=== PATIENT | male | born 1940 | race Caucasian/White ===

== ENCOUNTER 2023-07-08 14:45 | Inpatient (IN) ==
--- NOTE | 2023-07-08 15:02 | Emergency Department Note ---
Impression & Plan Dysphagia, Vomiting ED Provider Note NAME: PARADISE BANEGAS AGE: 83 SEX: M : 1940 ARRIVES VIA: Walk-In INFORMANT: Patient ED PROVIDER(S): Baljit Santos DO CHIEF COMPLAINT: Unable to swallow HPI: Patient is an 83-year-old male who presents to the ER as he has been unable to eat or drink anything for the past month. This initially started with drier and pulverizer tender foods and now he cannot eat any food. He is able to keep some liquids down intermittently. He notes he feels very weak and rundown. Denies any headache or change in vision. No chest pain or shortness of breath unless he swallows in which case then he gets chest pain. No belly pain. No dysuria, urgency, or fr equency. No other exacerbating or remitting factors. He has never had this before. Additional history provided by daughter at bedside and notes he has not been able to eat or drink anything today. ADDITIONAL HISTORY OBTAINED: Per HPI Chronic Medical/Social Conditions Affecting Care: Per HPI PAST MEDICAL HISTORY:See Below PAST SURGICAL HISTORY:See Below FAMILY HISTORY:See Below SOCIAL HISTORY:See Below HOME MEDICATIONS:See Below ALLERGIES:See Below VITALS:See Below PHYSICAL EXAMINATION: GENERAL: Sitting up in bed, alert, chronically ill-appearing, disheveled EYE EXAM: normal conjunctiva. OROPHARYNX: mucous membranes are moist NECK: supple, no nuchal rigidity, no adenopathy, non-tender LUNGS: Clear to auscultation. Normal chest wall mechanics HEART: no murmurs, S1 normal and S2 normal ABDOMEN: abdomen soft, non-tender, normo-active bowel sounds, no masses, no r ebound or guarding. UPPER EXTREMITIES: upper extremities are grossly normal. LOWER EXTREMITIES: No pitting edema. NEURO EXAM: Normal sensorium, cranial nerves II-XII grossly intact, normal speech, no gross weakness of arms, no gross weakness of legs. MEDICAL DECISION MAKING: Patient is an 83-year-old male who presents ER for above-stated complaint. IV was established blood was obtained. Labs show no significant leukocytosis or anemia. BMP along LFTs bilirubin was unremarkable. Lipase is normal. Patient was given IV fluids. He notes he has no chest pain unless he swallows. This not consistent with ACS. Chest x-ray was unremarkable. He was updated bedside. Discussed with the hospitalist patient was admitted to Dr. Andres. External Records Reviewed: External records reviewed at bedside from [facility]. Patient has scope on Monday Consults/Care Managements Discussions: Per MDM Triage Nursing notes reviewed. Limited review of prior medical records performed Vital Signs: reviewed and remarkable for no significant abnormalities Differential diagnosis: Differential diagnoses includes but is not limited to gastritis, peptic ulcer disease, GERD, gallbladder disease, pancreatitis, small bowel obstruction, appendicitis, diverticulitis, hernia, urinary tract infection, torsion, perforation, trauma, infectious. ER treatment provided: See below Diagnostics interpreted by me include EKG and cardiac monitoring as listed below: -Cardiac Monitoring: An order was placed for continuous cardiac monitoring. The monitor shows a rate of 60 with sinus rhythm. -ECG: none -Laboratory studies:Interpreted by me as stated above in MDM and shown below. Imaging studies: Xrays: As interpreted by me: Portable AP upright 1 view of the chest shows no focal infiltrate per my read CTs show: none Procedures:none Critical Care: None Past Med/Surg History Social History Smoking Status: Never smoker Preferred Language: Cook Islander Feels Safe at Home: Yes Allergies Allergies Allergy/AdvReac Type Severity Reaction Status Date / Time No Known Allergies Allergy Unverified 07/08/23 15:13 Home Meds Home Medications Medication Instructions Recorded Confirmed cyanocobalamin (vitamin B-12) 1,000 mcg PO QAM 07/08/23 07/08/23 1,000 mcg sublingual tablet Results & Data (ED) Vital Signs Vital Signs - 24 hr 07/08/23 14:48 07/08/23 15:15 07/08/23 15:03 Temperature 36.6 C Temperature Source Temporal Artery Scan Pulse Rate 71 86 Pulse Rate [Apical] 64 Pulse Rhythm Regular Regular Pulse Rhythm [Apical] Regular Pulse Strength Normal Pulse Strength [Apical] Normal Respiratory Rate 20 20 20 Respiratory Effort / Characteristics Non-Labored Spontaneous Non-Labored Spontaneous Respiratory Depth Normal Normal Respiratory Pattern Regular Regular Blood Pressure 160/92 H Blood Pressure [Right Arm] 162/94 H Blood Pressure Mean 114 Blood Pressure Mean [Right Arm] 116 Blood Pressure Position Sitting Blood Pressure Position [Right Arm] Sitting Pulse Oximetry 95 96 96 Oxygen Delivery Method Room Air Room Air Room Air Sepsis Recent Fever Within 48 Hours No Sepsis New/Unexplained Change in Mental Status No Sepsis Action Taken by Nursing No Action Required 07/08/23 15:44 07/08/23 16:03 07/08/23 17:29 Temperature Temperature Source Pulse Rate 52 L Pulse Rate [Apical] 57 L 58 L Pulse Rhythm Pulse Rhythm [Apical] Regular Regular Pulse Strength Pulse Strength [Apical] Normal Normal Respiratory Rate 20 20 Respiratory Effort / Characteristics Non-Labored Spontaneous Non-Labored Spontaneous Respiratory Depth Normal Normal Respiratory Pattern Regular Regular Blood Pressure Blood Pressure [Right Arm] 168/106 H 113/95 Blood Pressure Mean Blood Pressure Mean [Right Arm] 126 101 Blood Pressure Position Blood Pressure Position [Right Arm] Sitting Sitting Pulse Oximetry 97 97 Oxygen Delivery Method Room Air Room Air Sepsis Recent Fever Within 48 Hours Sepsis New/Unexplained Change in Mental Status Sepsis Action Taken by Nursing Laboratory Data 07/08/23 15:30 07/08/23 16:39 Lab Results 07/08/23 07/08/23 07/08/23 Range/Units 15:30 15:30 16:39 WBC 8.56 (4.8-10.8) K/ul RBC 4.57 L (4.70-6.10) M/uL Hgb 14.2 (14.0-18.0) g/dl Hct 42.3 (42.0-52.0) % MCV 92.6 (80.0-100.0) fL MCH 31.1 (25.0-34.0) pg MCHC 33.6 (32.0-36.0) g/dL RDW Std Deviation 43.4 (36.4-46.3) fL RDW Coeff of Toya 12.6 (11.5-14.5) % Plt Count 310 (130-400) K/uL MPV 9.6 (9.4-12.4) fL Immature Gran % (Auto) 0.2 % Neut % (Auto) 79.1 % Lymph % (Auto) 13.8 % Frio % (Auto) 5.6 % Eos % (Auto) 0.9 % Baso % (Auto) 0.4 % Neut # (Auto) 6.77 H (1.40-6.50) K/uL Lymph # (Auto) 1.18 L (1.20-3.40) K/uL Frio # (Auto) 0.48 (0.11-0.59) K/uL Eos # (Auto) 0.08 (0.00-0.50) K/uL Baso # (Auto) 0.03 (0.00-0.20) K/uL Immature Gran # (Auto) 0.02 (0.01-0.20) K/uL Sodium 135 L (136-145) mmol/L Potassium TNP 3.9 Chloride 104 (98-107) mmol/L Carbon Dioxide 22 (21-32) mmol/L Anion Gap 9 (3-11) BUN 37 H (6-23) mg/dl Creatinine 0.84 (0.6-1.4) mg/dl Est Cr Clr Drug Dosing Not Reportable Est GFR ( Amer) 92.5 ml/min Est GFR (Non-Af Amer) 79.8 ml/min BUN/Creatinine Ratio 44.0 H (10-20) Glucose 87 (70-99(Fasting)) mg/dl Calcium 9.3 (8.6-10.3) mg/dl Total Bilirubin 0.7 (0.2-1.0) mg/dl AST TNP 19 ALT 9 (7-52) U/L Alkaline Phosphatase 87 (34-104) U/L Total Protein 8.4 H (6.0-8.3) gm/dl Albumin 3.9 (3.4-5.0) gm/dl Globulin 4.5 H (2.5-4.0) gm/dl Albumin/Globulin Ratio 0.9 (0.9-2) Lipase 32 (11-82) U/L Administered Medications Discontinued Medications Sodium Chloride (Nss) 500 mls @ 999 mls/hr IV .Q31M ONE Stop: 07/08/23 15:34 Last Infusion: 07/08/23 16:15 Dose: 0 mls/hr Documented By: Admin: 07/08/23 15:40 Dose: 999 mls/hr Documented By: CONNOR Imaging Data Radiologist's Impression: Chest X-Ray 07/08/23 15:02 SINGLE VIEW CHEST CLINICAL HISTORY: Dysphagia FINDINGS: 2 AP, portable, upright chest radiographs are obtained. No prior studies are available for comparison at the time of dictation. The heart is mildly enlarged noting atherosclerotic calcification of the thoracic aorta. The pulmonary vasculature is noncongested. Nonspecific interstitial thickening is likely chronic. There is bibasilar scarring/atelectasis. The lungs and pleural spaces are otherwise clear. No pneumothorax is seen. The skeletal structures are osteopenic. The bony thorax is grossly intact. Degenerative change is noted in the shoulders. IMPRESSION: Mild cardiomegaly with no acute cardiopulmonary abnormality identified. ACT 112: Negative or not required by law. Electronically signed by: Griffin Theodore M.D. 07/08/2023 3:28 PM Discharge Plan Visit Data Chief Complaint: Food Bolus Stated Complaint: DIFFICULTY SWALLOWING, DECREASED PO INTAKE ED Provider: Baljit Santos Discharge Problem: Dysphagia, Vomiting Patient Disposition: Home - Self-Care Discharge Instructions Interventions: ED Discharge Assessment Last Done: 07/08/23 15:26 Forms Stand Alone Forms: [facility], Virtual Emergency Department, Impor tant Visit Information Prescriptions Prescriptions: No Action cyanocobalamin (vitamin B-12) 1,000 mcg tablet, sublingual 1,000 mcg PO QAM Referrals Referrals: Geovany Mclean MD [Primary Care Provider] -
[2023-07-08] MEDS ORDERED: SODIUM CHLORIDE 0.9% 500 ML IV ONE (15:04)
--- NOTE | 2023-07-08 15:29 | XRay Report ---
SINGLE VIEW CHEST CLINICAL HISTORY: Dysphagia FINDINGS: 2 AP, portable, upright chest radiographs are obtained. No prior studies are available for comparison at the time of dictation. The heart is mildly enlarged noting atherosclerotic calcificatio n of the thoracic aorta. The pulmonary vasculature is noncongested. Nonspecific interstitial thickeni ng is likely chronic. There is bibasilar scarring/atelectasis. The lungs and pleural spaces are other garnett clear. No pneumothorax is seen. The skeletal structures are osteopenic. The bony thorax is gross ly intact. Degenerative change is noted in the shoulders. IMPRESSION: Mild cardiomegaly with no acute cardiopulmonary abnormality identified. ACT 112: Negative or not required by law. Electronically signed by: Griffin Theodore M.D. 07/08/2023 3:28 PM
[2023-07-08 15:55] LABS: Basophils # (auto) 0.03 K/uL (0.00-0.20); Basophils % (auto) 0.4 %; Eosinophils # (auto) 0.08 K/uL (0.00-0.50); Eosinophils % (auto) 0.9 %; Hematocrit (blood only) 42.3 % (42.0-52.0); Hemoglobin 14.2 g/dl (14.0-18.0); Immature Granulocytes # (auto) 0.02 K/uL (0.01-0.20); Immature Granulocytes % (auto) 0.2 %; Lymphocytes # (auto) 1.18 K/uL (1.20-3.40); Lymphocytes % (auto) 13.8 %; Mean Corpuscular Hemoglobin 31.1 pg (25.0-34.0); Mean Corpuscular Hgb Conc 33.6 g/dL (32.0-36.0); Mean Corpuscular Volume 92.6 fL (80.0-100.0); Mean Platelet Volume 9.6 fL (9.4-12.4); Monocytes # (auto) 0.48 K/uL (0.11-0.59); Monocytes % (auto) 5.6 %; Neutrophils # (auto) 6.77 K/uL (1.40-6.50); Neutrophils % (auto) 79.1 %; Platelet Count 310 K/uL (130-400); RDW Coefficient of Variation 12.6 % (11.5-14.5); RDW Standard Deviation 43.4 fL (36.4-46.3); Red Blood Count 4.57 M/uL (4.70-6.10); White Blood Count 8.56 K/ul (4.8-10.8)
[2023-07-08 16:17] LABS: Alanine Aminotransferase 9 U/L (7-52); Albumin Globulin Ratio 0.9 (0.9-2); Albumin Level 3.9 gm/dl (3.4-5.0); Alkaline Phosphatase 87 U/L (34-104); Anion Gap 9 (3-11); Bilirubin,Total 0.7 mg/dl (0.2-1.0); Blood Urea Nitrogen 37 mg/dl (6-23); Calcium 9.3 mg/dl (8.6-10.3); Carbon Dioxide 22 mmol/L (21-32); Chloride 104 mmol/L (98-107); Est GFR (African American) 92.5 ml/min; Est GFR (Non-African American) 79.8 ml/min; Globulin 4.5 gm/dl (2.5-4.0); Glucose 87 mg/dl (70-99(Fasting)); Lipase 32 U/L (11-82); Sodium 135 mmol/L (136-145); Total Protein 8.4 gm/dl (6.0-8.3)
[2023-07-08 17:08] LABS: Potassium 3.9 mmol/L (3.5-5.1)
--- NOTE | 2023-07-08 18:30 | History & Physical Report ---
Date of Service July 08, 2023 Assessment & Plan (1) Dysphagia: (2) Weight loss: (3) Prediabetes: (4) Vitamin B12 deficiency (dietary) anemia: Plan Worsening dysphagia and weight loss: -on exam pt had possible goiter vs midline neck mass ---- therefore will get CT neck and TSH -CBC and CMP are unremarkable - weight loss is likely 2/2 decreased PO intake -not suspecting any potential underlying carcinoma --- pt does not have any urinary symptoms -since pt is unable to eat will keep pt NPO --- GI consult for possible in house EGD --- will do maintenance fluid (D5NS- since pt appeared dehydrated) -abd exam is normal therefore no need for CT abd at this time - pt does chew tobacco daily Prediabetes and Vit B12 def: -will hold PO meds at this time - pts hgb is normal -Pt is NPO Diet:NPO DVT PPx: Lovenox Code Status: FULL CODE Emergency Contact: Daughter-Sunitha [phone] History of Present Illness Chief Complaint: dysphagia and weight loss Primary Care Provider: Geovany Mclean MD Pt is a 83 y/o M with hx of Vit B12 def anemia, prediabetes, Trace mitral regurgitation, Mild aortic regurgitation, macular degenerationand s/pcataractsurgery came into the ER with worsening dysphagia and weight loss. Per daughter who was at bedside. Pt has been experiencing dysphagia for 2 m onths. Initially it was associated with solid, dry food and now pt is having dysphagia with water. He also lost abt ~20 lbs in last 2 months. Pt denied any fever, abd pain, lymphadenopathy, urinary symptoms, night sweats. Per daughter pt is still able to do things in the house. Allergies Allergy/AdvReac Type Severity Reaction Status Date / Time No Known Allergies Allergy Unverified 07/08/23 15:13 Home Medications Medication Instructions Recorded Confirmed Type cyanocobalamin (vitamin B-12) 1,000 mcg PO QAM 07/08/23 07/08/23 History 1,000 mcg sublingual tablet Past Med/Surg History Medical History (Updated 07/08/23 @ 18:28 by Geovany Mclean MD) Macular degeneration Mild aortic regurgitation Prediabetes Vitamin B12 deficiency (dietary) anemia Surgical History (Updated 07/08/23 @ 18:26 by Geovany Mclean MD) Hx of appendectomy Social History (Updated 07/08/23 @ 18:27 by Geovany Mclean MD) Smoking Status: Never smoker Tobacco Type: Smokeless Tobacco (Dip or Chew) Preferred Language: Finnish Feels Safe at Home: Yes Review of Systems Review of Systems: At least 10 Review of systems were reviewed and all negative except as indicated in HPI Physical Exam Physical Exam: General:. NAD, average body habitus HEENT:.normal oropharynx, possible goiter but no palpable thyroid nodule, Normocephalic and atraumatic, Normal Conjunctiva, EOMI, Sclera is non-icteric Lungs:. No signs of respiratory distress, CTA, no wheezing or crackles Heart:.systolic murmur, Normal S1, S2 Abdominal:. ND, Soft, NT, normal BS MSK:. No deformities of UE and LE, No leg edema Skin:. no rash or open wound Psych:. AAOx3, normal affect Results & Data Results & Data Vital Signs (Past 12 Hours) Vital Signs Temp Pulse Pulse Resp BP BP Pulse Ox 07/08/23 17:29 58 L 20 113/95 97 07/08/23 16:03 57 L 20 168/106 H 97 07/08/23 15:44 52 L 07/08/23 15:03 86 20 96 07/08/23 15:15 64 20 162/94 H 96 07/08/23 14:48 36.6 C 71 20 160/92 H 95 O2 Del Method 07/08/23 17:29 Room Air 07/08/23 16:03 Room Air 07/08/23 15:44 07/08/23 15:03 Room Air 07/08/23 15:15 Room Air 07/08/23 14:48 Room Air Laboratory Results Short CBC 07/08/23 Range/Units 15:30 WBC 8.56 (4.8-10.8) K/ul Hgb 14.2 (14.0-18.0) g/dl Hct 42.3 (42.0-52.0) % Plt Count 310 (130-400) K/uL BMP 07/08/23 07/08/23 15:30 16:39 Sodium 135 L Potassium TNP 3.9 Chloride 104 Carbon Dioxide 22 BUN 37 H Creatinine 0.84 Glucose 87 Calcium 9.3 Liver Function 10/07/23 10/07/23 Range/Units 15:30 16:39 Total Bilirubin 0.7 (0.2-1.0) mg/dl AST TNP 19 ALT 9 (7-52) U/L Alkaline Phosphatase 87 (34-104) U/L Albumin 3.9 (3.4-5.0) gm/dl Diagnostic Findings Chest X-Ray 07/08/23 15:02 SINGLE VIEW CHEST CLINICAL HISTORY: Dysphagia FINDINGS: 2 AP, portable, upright chest radiographs are obtained. No prior studies are available for comparison at the time of dictation. The heart is mildly enlarged noting atherosclerotic calcification of the thoracic aorta. The pulmonary vasculature is noncongested. Nonspecific interstitial thickening is likely chronic. There is bibasilar scarring/atelectasis. The lungs and pleural spaces are otherwise clear. No pneumothorax is seen. The skeletal structures are osteopenic. The bony thorax is grossly intact. Degenerative change is noted in the shoulders. IMPRESSION: Mild cardiomegaly with no acute cardiopulmonary abnormality identified. ACT 112: Negative or not required by law. Electronically signed by: Griffin Theodore M.D. 07/08/2023 3:28 PM Code Status & VTE Plan VTE Prophylaxis Plan VTE Prophylaxis will be ordered: Yes
[2023-07-08] MEDS ORDERED: D5W AND NSS 1,000 ML IV SCH (18:47)
[2023-07-08] MEDS ORDERED: OPTIRAY 320 100ml IV ONE (20:16)
[2023-07-08] MEDS: ENOXAPARIN INJ 40 MG/0.4 ML SYR SQ SCH (21:49)
--- NOTE | 2023-07-08 22:41 | CT Scan Report ---
Exam(s): CT NECK With Contrast IV Amt: OPTIRAY 320 93ML EXAM: CT Neck With Intravenous Contrast CLINICAL HISTORY: Reason for exam: neck goiter vs mass. TECHNIQUE: Axial computed tomography images of the neck with intravenous contrast. CTDI is 10.82 mGy and DLP is 306.55 mGy-cm. Automated exposure control was utilized for the study. A dose lowering technique was utilized adhering to the principles of ALARA. CONTRAST: Patient received OPTIRAY 320 93ML of IV contrast COMPARISON: None. FINDINGS: Oropharynx: Unremarkable. No significant tonsillar enlargement. No peritonsillar abscess. Hypopharynx: Unremarkable. Larynx: Unremarkable. Normal epiglottis. Trachea: Unremarkable. Retropharyngeal space: Unremarkable. Submandibular/parotid glands: Unremarkable. Glands are normal in size. Thyroid: Unremarkable. No enlarged or calcified nodules. Bones/joints: Multilevel DJD disease of the spine with no acute fracture or subluxation. Soft tissues: Unremarkable. Vasculature: Mild atherosclerotic disease of the aortic arch. Mild atherosclerotic disease involving the left carotid bulb region, otherwise normal bilateral carotid arteries. Dominant left-sided vertebral artery, otherwise unremarkable bilateral vertebral arteries. Lymph nodes: There is a partially calcific nodule in the left upper paraesophageal region measuring 1.4 x 1.1 cm mass, associated with calcified lymph nodes. Esophagus: Marked dilatation of the upper esophagus with foamy debris in the lumen reaching a diameter of 4.2 cm. Lung apices: The lung apices reveal mild interstitial prominence in the septal distribution with trace honeycombing suggestive of early fibrosis. IMPRESSION: 1. Severe dilatation of the upper esophagus suggestive of achalasia versus obstructive distal lesion of indeterminate etiology. Recommend follow-up with upper endoscopy or upper GI series for further evaluation. 2. Calcified nodule within the left upper mediastinal/paraesophageal region, nonspecific and,, knee associated with sequela of previous granulomatous infection. If indicated, these findings may be further assessed with CT chest to include upper abdomen/gastric region. 3. 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 Electronically signed by: Karly Davis MD 07/08/23 22:40 PM
[2023-07-09 00:34] LABS: Appearance Urine Clear (Clear); Bacteria Urine Automated Negative (Negative); Bilirubin Urine Negative (Negative); Blood Urine Negative (Negative); Color Urine Yellow; Glucose Urine UA Negative (Negative); Ketones Urine 3+ (Negative); Leukocyte Esterase Urine Negative (Negative); Nitrite Urine Negative (Negative); Protein Urine Trace (Negative); RBC Urine Automated 0-4 /hpf (0-4); Specific Gravity Urine > 1.045 (1.000-1.030); Urobilinogen Urine Negative (Negative); pH Urine 5.5 (4.5-7.5)
[2023-07-09 07:39] LABS: Basophils # (auto) 0.03 K/uL (0.00-0.20); Basophils % (auto) 0.5 %; Eosinophils # (auto) 0.27 K/uL (0.00-0.50); Eosinophils % (auto) 4.7 %; Hematocrit (blood only) 38.5 % (42.0-52.0); Hemoglobin 12.4 g/dl (14.0-18.0); Immature Granulocytes # (auto) 0.02 K/uL (0.01-0.20); Immature Granulocytes % (auto) 0.4 %; Lymphocytes # (auto) 1.22 K/uL (1.20-3.40); Lymphocytes % (auto) 21.4 %; Mean Corpuscular Hemoglobin 30.6 pg (25.0-34.0); Mean Corpuscular Hgb Conc 32.2 g/dL (32.0-36.0); Mean Corpuscular Volume 95.1 fL (80.0-100.0); Mean Platelet Volume 9.5 fL (9.4-12.4); Monocytes % (auto) 8.8 %; Neutrophils # (auto) 3.65 K/uL (1.40-6.50); Neutrophils % (auto) 64.2 %; Platelet Count 282 K/uL (130-400); RDW Coefficient of Variation 12.5 % (11.5-14.5); RDW Standard Deviation 43.7 fL (36.4-46.3); Red Blood Count 4.05 M/uL (4.70-6.10); White Blood Count 5.69 K/ul (4.8-10.8)
[2023-07-09 08:14] LABS: Albumin Globulin Ratio 0.9 (0.9-2); Albumin Level 3.2 gm/dl (3.4-5.0); BUN Creatinine Ratio 41.9 (10-20); Bilirubin,Total 0.7 mg/dl (0.2-1.0); Calcium 8.4 mg/dl (8.6-10.3); Creatinine Clr Calc Pharmacy 65.8 ml/min; Est GFR (African American) 97.5 ml/min; Est GFR (Non-African American) 84.1 ml/min; Globulin 3.7 gm/dl (2.5-4.0); Magnesium 2.1 mg/dl (1.7-2.4); Potassium 3.9 mmol/L (3.5-5.1); Total Protein 6.9 gm/dl (6.0-8.3)
--- NOTE | 2023-07-09 11:25 | CT Scan Report ---
CT SCAN OF THE CHEST WITHOUT IV CONTRAST CLINICAL HISTORY: Esophageal dilatation is seen on neck CT. COMPARISON STUDY: Chest x-ray dated 07/08/2023. Neck CT dated 07/08/2023. TECHNIQUE: CT scan of the thorax was performed from the thoracic inlet to the upper abdomen. Images are reviewed in the axial, sagittal, and coronal planes. IV contrast was not administered for this ex amination as per the referring clinician. Note that the examination is suboptimal without IV contrast . A dose lowering technique was utilized adhering to the principles of ALARA. CT DOSE: 599.31 mGy.cm FINDINGS: Thyroid: Imaged portions of the thyroid gland are normal in size and attenuation. Thoracic aorta: There is atherosclerotic calcification of the thoracic aorta, which is normal in ad cortney and demonstrates standard 3-vessel arch anatomy. Heart: The heart is enlarged and without pericardial effusion. The coronary arteries intensely calcif ied. Lungs and pleural spaces: Subpleural reticulation is seen throughout both lungs. Foci of parenchymal scarring are seen bilaterally, with dependent atelectasis noted at the lung bases. There are scattere d calcific granulomas. No airspace consolidation or pleural effusion is seen. The trachea and central airways are clear. A 3 mm left upper lobe pulmonary nodule is seen on image #95. A 3 mm right upper lobe nodule is seen on image #86. Esophagus: The esophagus is significantly dilated and filled with fluid/debris level of the thoracic inlet. The distal esophagus appears circumferentially thick walled, and there is also irregular wall thickening at the gastroesophageal junction/gastric cardia with surrounding infiltration. Mediastinum: A calcification containing high left paratracheal node on image #61 measures 1.5 x 1.1 c m. Prominent prevascular and precarinal nodes measure up to 8 mm short axis. A right paraesophageal n ode on image #127 measures 1.6 x 1.4 cm. Belen: Not well assessed without IV contrast. Axillae: There is no axillary lymphadenopathy. Upper abdomen: Excreted contrast is seen in the renal collecting systems. Renal sinus cysts are parti ally seen bilaterally. There are pathologically enlarged gastric hepatic lymph nodes, several of whic h contain calcifications. A node on image #214 measures 2.8 x 2.3 cm. A more inferiorly located node image #227 contains calcifications and measures 3.2 x 2.6 cm, and a calcification in a node just belo w the hiatus on image #211 measures 2.1 x 2.0 cm.. Skeletal structures: The skeletal structures are osteopenic. Degenerative change and hyperkyphosis is noted in the spine. No lytic or blastic bony lesions are seen. IMPRESSION: 1. Markedly dilated esophagus, which is filled with fluid/debris to the level of the thoracic inlet. Note that this may place the patient at risk for aspiration. 2. The distal esophagus is circumferentially thick walled with surrounding infiltration. There is als o irregular/heterogeneous wall thickening involving the gastroesophageal junction/gastric cardia with surrounding infiltration. Although this could potentially be on inflammatory basis, the appearance i s much more suspicious for an obstructing gastroesophageal mass lesion. Correlation with endoscopy is recommended. 3. There is bulky upper abdominal lymphadenopathy as above. Several these nodes contain calcification s. Metastatic disease is to be excluded. 4. There is a smaller but similar appearing calcified high left paratracheal node, as well as an enla rged right paraesophageal node. 5. No airspace consolidation or pleural effusion is identified. 6. There are at least 2 indeterminate pulmonary nodules which measure up to 3 mm. Attention of follow -up is recommended. 7. Chronic pulmonary parenchymal changes as above with no airspace consolidation or pleural effusion. 8. Cardiomegaly with advanced coronary artery calcification. 9. Additional findings as above. ACT 112: Positive. There are findings on this exam that require communication between the performing entity and the patient following Patient Test Result Information Act ([place] Act 112) guidelines. Electronically signed by: Griffin Theodore M.D. 07/09/2023 11:23 AM
--- NOTE | 2023-07-09 14:06 | Gastrointestinal Consultation ---
Date of Consultation July 09, 2023 Supervising Physician Co-Signing Physician Notes Ice chips are fine Would hold off on liquids/softs- these were given earlier bc the patient was stating he wanted to leave bc he was hungry. Npo after midnite. EGD tomorrow likely in the or - per the OR schedule (information has been communicated to the OR about the patient and add on for tomorrow). History of Present Illness Reason for Consultation: Dysphagia Requesting Physician: Dr. Barba Attending Physician: Anneliese Barba MD History of Present Illness 83 yo male with macular degeneration, admitted thru the ed for progressive dysphagia. He was seen in the GI office on Monday for this complaint. He came to the ED stating he was not able to keep things down. Cxray negative in the ed and was tolerating secretions. He was admitted yesterday evening GI consulted this morning. CT neck/chest showing dilated esophagus with questionable fluid/debris, and ? hernia versus ge junction obstruction. I had spoken with Sunitha on the phone. He is clinically seen this afternoon with a daughter at the bedside (not Sunitha) a different daughter and his two nieces. The family is not certain who the poa is or if he has a poa. The patient states he seems to make his own decisions but then askes to talk to his daughter (the daughter in the room) mentions to talk to Sunitha or Katie the other daughters. He clinically is not endorsing pain, no drooling noted, tolerating his secretions. Per the nurse when eating ice cream within the past hour, choked on it. Did discuss with anesthesia that he is potentially at higher aspiration risk given ct findings and recent ice cream. Given he is not acute obstructed in appearance, collective decision with the family and prior conversation with Sunitha was to attempt endoscopy tomorrow. Allergies Allergy/AdvReac Type Severity Reaction Status Date / Time No Known Allergies Allergy Unverified 07/08/23 15:13 Home Medications Medication Instructions Recorded Confirmed Type cyanocobalamin (vitamin B-12) 1,000 mcg PO QAM 07/08/23 07/08/23 History 1,000 mcg sublingual tablet Patient History Medical History (Updated 07/08/23 @ 18:28 by Geovany Mclean MD) Macular degeneration Mild aortic regurgitation Prediabetes Vitamin B12 deficiency (dietary) anemia Surgical History (Updated 07/08/23 @ 18:26 by Geovany Mclean MD) Hx of appendectomy Social History (Updated 07/08/23 @ 18:27 by Geovany Mclean MD) Smoking Status: Former smoker Tobacco Type: Smokeless Tobacco (Dip or Chew) Second Hand Exposure: No; Do You Dip or Chew Tobacco: No; Tobacco Cessation Education Requested by Patient: No Hx Alcohol Use: No Hx Substance Use: No Preferred Language: Romanian Communication Ability: Effective Communication Ability Comment: Visual Impairement Cardiovascular Invasive Specialist Required: No Beliefs That Will Affect Care: None Current Living Situation: Alone Other Information That Helps Us Care for You: No Feels Safe at Home: Yes Safety Concerns: Feels Safe At This Time Assistive Devices: Cane Review of Systems Review of Systems: All systems reviewed & are unremarkable except as noted in HPI & below Physical Exam Physical Exam: Thin amle in nad Eyes: PERRL, conjunctivae normal, anicteric sclerae Tolerating secretions, no acute distress Respiratory: Normal respirations, no audible wheezing Cardiovascular: Slightly bradycardic Gastrointestinal (Abdomen): Thin soft Results & Data Vital Signs (Past 12 Hours) Vital Signs Temp Pulse Resp BP Pulse Ox O2 Del Method 07/09/23 07:53 36.3 C L 43 L 18 126/74 98 Room Air Laboratory Results No prior egd noted labs reviewed - slight downtrend in hgb
[2023-07-09] MEDS: SODIUM CHLORIDE 0.9% 1,000 ML IV SCH (17:12)
--- NOTE | 2023-07-09 17:32 | Hospitalist Progress Note ---
Date of Service July 09, 2023 Assessment & Plan (1) Dysphagia: (2) Weight loss: (3) Prediabetes: (4) Vitamin B12 deficiency (dietary) anemia: Plan 83 y/o M with hx of Vit B12 def anemia, prediabetes, Trace mitral regurgitation, Mild aortic regurgitation, macular degenerationand s/pcataractsurgery admitted with worsening dysphagia and weight loss. Dysphagia Weight Loss Pt states he has had worsening dysphagia and weight loss for months CT soft tissue neck- Notes severe dilatation of the upper esophagus suggestive of achalasia versus obstructive distal lesion of indeterminate etiology. CT chest noted the following: -Markedly dilated esophagus, which is filled with fluid/debris to the level of the thoracic inlet, concern for ability to aspirate -Concern for malignancy/an obstructing gastroesophageal mass lesion in the distal esophagus/gastric cardia -Bulky upper abdominal lymphadenopathy with calcifications concerning for metastatic disease -smaller but similar appearing calcified high left paratracheal node, as well as an enlarged right paraesophageal node -2 indeterminate pulmonary nodules which measure up to 3 mm. Attention of follow-up is recommended. -Cardiomegaly GI consulted, also contacted throughout the day, appreciate recs. -EGD tomorrow 07/10 -Pt NPO after a failed soft food/ice-cream trial, can eat ice chips Continue IVF, PRN IV reglan Holding all home PO meds Noted that pt does chew tobacco daily Will await EGD results/assessment for next steps Prediabetes and Vit B12 def: Will hold PO meds at this time Diet: NPO at this time DVT PPx: Lovenox Code Status: FULL CODE Admission and Anticipated Discharge Date Admission Date: July 08, 2023 Subjective Called to bedside by nursing this AM. Stated that pt was angry and wanted to eat, pulled out his IV and wanted to leave. On arrival, pt was sitting in the bed. Stated that he has not been able to eat for some time and would like to do so. States he was under the impression that something would be done for him as soon as possible. GI was contacted by both this provider and nursing. Review of Systems Review of Systems: All systems reviewed & are unremarkable except as noted in Subjective Physical Exam Physical Exam: General: Alert, oriented. No acute distress Skin: No noted rashes or bruises Psych: Appropriate mood and affect Neuro: No gross deficits HEENT: NC/AT Chest: Nontender to palpation. CV: RRR, Normal s1, s2. Resp: Breath sounds clear bilaterally, no increased effort of breathing. Abdomen: Soft, nontender, nondistended. Extremities: No edema in lower extremities bilaterally. Results & Data Results & Data Vital Signs (Past 12 Hours) Vital Signs Temp Pulse Resp BP Pulse Ox O2 Del Method 07/08/23 21:02 36.4 C L 53 L 18 123/71 96 Room Air
[2023-07-09] MEDS ORDERED: METOCLOPRAMIDE HCL INJ 5 MG/ML 2 ML VIAL IV PRN (18:07)
[2023-07-09] MEDS ORDERED: OLANZapine 10 MG/2.1 ML SDV IM STA (18:31)
[2023-07-09] MEDS: OLANZapine 10 MG/2.1 ML SDV IM ONE ×2 (18:31→18:39)
--- NOTE | 2023-07-09 20:01 | Communication Note ---
Date of Service: July 09, 2023 Patient agitated on the third floor. SBP 120s, heart rate 40s Zyprexa given by staff. AP Asymptomatic bradycardia Agitation Med telemetry transfer given bradycardia Baseline EKG to document QTc. Patient may need IM Haldol if Zyprexa ineffective.
[2023-07-09] MEDS ORDERED: PROMETHAZINE HCL 6.25 MG in SODIUM CHLORIDE 0.9% 50 ML IV PRN (20:04)
[2023-07-09] MEDS ORDERED: OLANZapine 10 MG/2.1 ML SDV IM PRN (20:05)
[2023-07-09] MEDS: ENOXAPARIN INJ 40 MG/0.4 ML SYR SQ SCH (21:10)
[2023-07-10] MEDS ORDERED: HALOPERIDOL LACTATE 5 MG/ML 1 ML VIAL IM STA ×2 (00:53→03:14)
[2023-07-10] MEDS: HALOPERIDOL LACTATE 5 MG/ML 1 ML VIAL IM PRN ×4 (01:58→18:44)
[2023-07-10] MEDS: SODIUM CHLORIDE 0.9% 1,000 ML IV SCH (04:09)
[2023-07-10 05:19] LABS: Basophils # (auto) 0.03 K/uL (0.00-0.20); Basophils % (auto) 0.4 %; Eosinophils # (auto) 0.05 K/uL (0.00-0.50); Eosinophils % (auto) 0.7 %; Hematocrit (blood only) 40.9 % (42.0-52.0); Hemoglobin 13.8 g/dl (14.0-18.0); Immature Granulocytes # (auto) 0.02 K/uL (0.01-0.20); Immature Granulocytes % (auto) 0.3 %; Lymphocytes # (auto) 0.75 K/uL (1.20-3.40); Lymphocytes % (auto) 9.9 %; Mean Corpuscular Hemoglobin 30.8 pg (25.0-34.0); Mean Corpuscular Hgb Conc 33.7 g/dL (32.0-36.0); Mean Corpuscular Volume 91.3 fL (80.0-100.0); Mean Platelet Volume 9.9 fL (9.4-12.4); Monocytes # (auto) 0.72 K/uL (0.11-0.59); Monocytes % (auto) 9.5 %; Neutrophils # (auto) 6.03 K/uL (1.40-6.50); Neutrophils % (auto) 79.2 %; Platelet Count 346 K/uL (130-400); RDW Coefficient of Variation 12.5 % (11.5-14.5); RDW Standard Deviation 41.4 fL (36.4-46.3); Red Blood Count 4.48 M/uL (4.70-6.10)
[2023-07-10 05:37] LABS: Albumin Globulin Ratio 0.9 (0.9-2); Albumin Level 3.6 gm/dl (3.4-5.0); BUN Creatinine Ratio 31.9 (10-20); Bilirubin,Total 0.8 mg/dl (0.2-1.0); Calcium 8.8 mg/dl (8.6-10.3); Creatinine Clr Calc Pharmacy 70.5 ml/min; Est GFR (African American) 100.3 ml/min; Est GFR (Non-African American) 86.6 ml/min; Magnesium 2.1 mg/dl (1.7-2.4); Phosphorus 1.9 mg/dl (2.5-4.9); Potassium 3.5 mmol/L (3.5-5.1); Total Protein 7.6 gm/dl (6.0-8.3)
--- NOTE | 2023-07-10 08:49 | Anesthesiology Consultation ---
Date of Service July 10, 2023 Assessment & Plan (1) Encounter for pre-operative examination: Chart Review Chart Review: Acceptable Risk for Surgery (esophagus full of food) History Surgery Operation Date: 07/10/23 07:50 Proposed Procedures p Esophagogastroduodenoscopy - Catherine England MD Height/Weight Height: 5 ft 7 in Weight: 63.7 kg Allergies Allergy/AdvReac Type Severity Reaction Status Date / Time No Known Allergies Allergy Unverified 07/08/23 15:13 Medications Home Medications Medication Instructions Recorded Confirmed Last Taken cyanocobalamin (vitamin B-12) 1,000 mcg PO QAM 07/08/23 07/08/23 Unknown 1,000 mcg sublingual tablet Active Medications Generic Name Dose Route Start Last Admin Trade Name Freq PRN Reason Stop Dose Admin Enoxaparin Sodium 40 mg 07/08/23 21:00 07/09/23 21:10 Enoxaparin Inj 40 Mg/0.4 Ml Syr SQ 08/07/23 20:59 Not Given Q24H MAYO Haloperidol Lactate 2 mg 07/10/23 00:01 07/10/23 01:58 Haloperidol Lactate 5 Mg/Ml 1 Ml Vial IM 08/09/23 00:00 2 mg Q2H PRN Administration Agitation Sodium Chloride 1,000 mls @ 80 mls/hr 07/09/23 17:15 07/10/23 04:09 Nss IV 08/08/23 17:14 80 mls/hr .[id number] MAYO Administration Past Medical History Medical History Macular degeneration Mild aortic regurgitation Prediabetes Vitamin B12 deficiency (dietary) anemia Past Surgical History Surgical History Hx of appendectomy Social History Smoking Status: Former smoker Do You Dip or Chew Tobacco: No Hx Alcohol Use: No Hx Substance Use: No Physical Exam Vital Signs Last Vital Signs Temp 36.6 C 07/10/23 07:24 Pulse 57 L 07/10/23 07:24 Resp 16 07/10/23 07:24 BP 148/84 H 07/10/23 07:24 Pulse Ox 97 07/10/23 07:24 O2 Del Method Room Air 07/10/23 07:24 Testing Laboratory Results 07/10/23 04:39 07/10/23 04:39 Urine Color Yellow 07/09/23 00:01 Urine Appearance Clear (Clear) 07/09/23 00:01 Urine pH 5.5 (4.5-7.5) 07/09/23 00:01 Ur Specific [place] > 1.045 (1.000-1.030) H 07/09/23 00:01 Urine Protein Trace (Negative) H 07/09/23 00:01 Urine Glucose (UA) Negative (Negative) 07/09/23 00:01 Urine Ketones 3+ (Negative) H 07/09/23 00:01 Urine Nitrite Negative (Negative) 07/09/23 00:01 Ur Leukocyte Esterase Negative (Negative) 07/09/23 00:01 Urine WBC (Auto) 1-5 /hpf (0-5) 07/09/23 00:01 Urine RBC (Auto) 0-4 /hpf (0-4) 07/09/23 00:01 U Hyaline Cast (Auto) 1-5 /lpf (0-5) 07/09/23 00:01 U Epithel Cells (Auto) 5-10 /lpf (0-5) H 07/09/23 00:01 Urine Bacteria (Auto) Negative (Negative) 07/09/23 00:01 07/10/23 08:03 POC Glucose 83 Electrocardiogram Date: 07/08/23 Findings: + poor R wave progression, + SB @ (51) and + [place] (possible inferior)
--- NOTE | 2023-07-10 08:54 | Hospitalist Progress Note ---
Date of Service July 10, 2023 Assessment & Plan (1) Dysphagia: (2) Weight loss: (3) Prediabetes: (4) Vitamin B12 deficiency (dietary) anemia: Plan 83 y/o M with hx of Vit B12 def anemia, prediabetes, Trace mitral regurgitation, Mild aortic regurgitation, macular degenerationand s/pcataractsurgery admitted with worsening dysphagia and weight loss. Dysphagia Weight Loss Pt stated he has had worsening dysphagia and weight loss for months CT soft tissue neck- Notes severe dilatation of the upper esophagus suggestive of achalasia versus obstructive distal lesion of indeterminate etiology. CT chest noted the following: -Markedly dilated esophagus, which is filled with fluid/debris to the level of the thoracic inlet, concern for ability to aspirate -Concern for malignancy/an obstructing gastroesophageal mass lesion in the distal esophagus/gastric cardia -Bulky upper abdominal lymphadenopathy with calcifications concerning for metastatic disease -smaller but similar appearing calcified high left paratracheal node, as well as an enlarged right paraesophageal node -2 indeterminate pulmonary nodules which measure up to 3 mm. Attention of follow-up is recommended. -Cardiomegaly MRI Brain- grossly unremarkable. Notes a 1.5 cm left submandibular calcification, likely within the submandibular duct. Repeat CT chest and abd/pelvis with contrast done for staging-confirming esophageal malignancy GI consulted, also contacted throughout the day, appreciate recs. -EGD tomorrow 07/11 -Pt NPO after a failed soft food/ice-cream trial, can eat ice chips Continue IVF, PRN IV phenergan Holding all home PO meds Noted that pt does chew tobacco daily Will await EGD results/assessment for next steps Delirium Pt gets agitated and sundowns Currently in restraints CODE REZA called evening of 07/09, received a dose of Zyprexa 5mg IM Episode of bradycardia Currently ordered IM Haldol 2mg q2h prn for episodes of agitation Hypoglycemia Pt currently NPO Episodes of hypoglycemia On fluids with d5w Prediabetes and Vit B12 def: Will hold PO meds at this time Diet: NPO at this time DVT PPx: holding in anticipation of procedure, SCDs ordered, pt considered high risk with malignancy Code Status: FULL CODE Admission and Anticipated Discharge Date Admission Date: July 08, 2023 Subjective Pt seen in the AM with daughters and other family members at bedside. Was in restraints. AAOx1. Daughter Katie agreeable to pt being sedated for further imaging. Review of Systems Review of Systems: All systems reviewed & are unremarkable except as noted in Subjective Physical Exam Physical Exam: General: Alert, orientedx1. Cachectic Psych: In restraints for agitation Neuro: Oriented x1 HEENT: NC/AT Chest: Nontender to palpation. CV: RRR, Normal s1, s2. Resp: no increased effort of breathing. Abdomen: Soft, nontender, nondistended. Extremities: No edema in lower extremities bilaterally. Results & Data Results & Data Vital Signs (Past 12 Hours) Vital Signs Temp Pulse Pulse Resp BP BP Pulse Ox 07/10/23 07:24 36.6 C 57 L 16 148/84 H 97 07/10/23 04:00 36.6 C 105 H 20 150/91 H 97 07/09/23 23:00 36.7 C 50 L 18 121/79 98 07/09/23 21:59 36.6 C 44 L 18 140/80 97 O2 Del Method 07/10/23 07:24 Room Air 07/10/23 04:00 Room Air 07/09/23 23:00 Room Air 07/09/23 21:59 Room Air
[2023-07-10] MEDS ORDERED: POTASSIUM PHOS 3 MMOL/1 ML INFUSION IV STA (08:55)
[2023-07-10] MEDS ORDERED: POTASSIUM PHOSPHATE 21 MMOL in SODIUM CHLORIDE 0.9% 500 ML IV ONE (09:30)
--- NOTE | 2023-07-10 12:28 | Electrocardiogram Report ---
Test Reason : Blood Pressure : / mmHG Vent. Rate : 051 BPM Atrial Rate : 051 BPM P-R Int : 160 ms QRS Dur : 076 ms QT Int : 448 ms P-R-T Axes : 069 -71 072 degrees QTc Int : 412 ms Sinus bradycardia Left axis deviation Septal infarct , age undetermined Inferior infarct , age undetermined Abnormal ECG No previous ECGs available Confirmed by Js Browne ([id number]) on 07/10/2023 12:28:26 PM Referred By: REFERRED SELF Confirmed By:Js Browne
--- NOTE | 2023-07-10 12:33 | Electrocardiogram Report ---
Test Reason : Blood Pressure : / mmHG Vent. Rate : 069 BPM Atrial Rate : 069 BPM P-R Int : 172 ms QRS Dur : 086 ms QT Int : 428 ms P-R-T Axes : 065 -50 051 degrees QTc Int : 458 ms Sinus rhythm with occasional Premature ventricular complexes Low voltage QRS Left anterior fascicular block Septal infarct (cited on or before 09-JUL-2023) Inferior infarct (cited on or before 09-JUL-2023) Abnormal ECG When compared with ECG of 09-JUL-2023 20:10, (unconfirmed) Premature ventricular complexes are now Present Confirmed by sJ Browne ([id number]) on 07/10/2023 12:33:02 PM Referred By: REFERRED SELF Confirmed By:Js Browne
--- NOTE | 2023-07-10 12:43 | Gastroenterology Progress Note ---
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 Plan for EGD, likely EUS tomorrow in the OR w airway protection. Imaging is suggestive of a lower esophageal mass. For staging would like to get CT chest, abdomen, pelvis w IV contrast. Prior CTs done w/o contrast. Renal function is now returned to normal. NPO today. Daughters, son agreeable to above plan. Pt has limited understanding but when explained to the pt in simple terms did agree to stay for testing/procedures. Admission and Anticipated Discharge Date Admission Date: July 08, 2023 Supervising Physician Co-Signing Physician Notes Attg add: Pt with worsening dysphagia, weight loss. Imaging on admit shows dilated, fluid filled esophagus. Non con CT suggests mass at GEJ with setve gastric lymphadenopathy. Pt is cachectic. He is awake, alert and verbal but confused - he is in restraints. No cervical or supraclavicular LAD. 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 I discussed this possiblity with pt. Rather than EGD today, I think it would be better to get carpenter CT for staging of cancer of GEJ, EGD tomorrow wih general anesthesia with option to undergo EUS and esophag eal stent. Family is amenable to this. If cancer is diagnosed, pt's children unanimously and unequivocally believe that he would likely forego any treatment fo rthis. Subjective 83 yr old male admitted yesterday for dysphagia, weight loss. CT w dilated, food/fluid filled esophagus. Some confusion since admission. Informal meeting w family about the plan, 3 daughters (Katie first POA, Deysi and Sunitha also POAs) and son Federico. They feel the pt would want the EGD for dx and would want an esophageal stent but would not want treatment for cancer if present. Review of Systems Review of Systems: Per family: weight loss, weakness, confusion, swallowing of liquids and solids causes coughing up liquids. This is a progressive problem for several month. Family does not believe he has had other symptoms. Physical Exam Constitutional: + ill appearing and + thin Confused today but does answer simple questions. Eyes: PERRL, conjunctivae normal, anicteric sclerae ENMT: external ear and nose normal, oropharynx normal Neck: trachea midline, no thyromegaly Respiratory: normal respiratory effort, lungs clear to auscultation (diminished at bases) Cardiovascular: RRR, no murmur, no edema Gastrointestinal (Abdomen): normal bowel sounds, soft, nontender, no hepatosplenomegaly Musculoskeletal: no cyanosis or clubbing, extremities motor strength 5/5 Skin: pale, dry, no lesions or rashes Neurologic: moves all extremities, awake and + confused Speech / Cognition: + abnormal cognition Psychiatric: Orientation: alert, oriented to person, oriented to place and cooperative (somewhat); + not oriented to time Eye Contact: + fair eye contact Lymphatic: no cervical or axillary lymphadenopathy Results & Data Vital Signs (Past 12 Hours) Vital Signs Temp Pulse Pulse Resp BP Pulse Ox O2 Del Method 07/10/23 10:53 37.2 C 75 18 142/88 H 96 Room Air 07/10/23 10:01 59 L 07/10/23 07:24 36.6 C 57 L 16 148/84 H 97 Room Air 07/10/23 04:00 36.6 C 105 H 20 150/91 H 97 Room Air Laboratory Results WBC 7.6, Hb 13 Hct 40, Plts 346, Na 139, K 3.5, Cl 106, CO2 22, BUN 22, Cr 0.6, glucose 94. Diagnostic Findings non contrast CT chest 07/09/23: 1. Markedly dilated esophagus, which is filled with fluid/debris to the level of the thoracic inlet. Note that this may place the patient at risk for aspiration. 2. The distal esophagus is circumferentially thick walled with surrounding infiltration. There is also irregular/heterogeneous wall thickening involving the gastroesophageal junction/gastric cardia with surrounding infiltration. Although this could potentially be on inflammatory basis, the appearance is much more suspicious for an obstructing gastroesophageal mass lesion. Correlation with endoscopy is recommended. 3. There is bulky upper abdominal lymphadenopathy as above. Several these nodes contain calcifications. Metastatic disease is to be excluded. 4. There is a smaller but similar appearing calcified high left paratracheal node, as well as an enlarged right paraesophageal node. 5. No airspace consolidation or pleural effusion is identified. 6. There are at least 2 indeterminate pulmonary nodules which measure up to 3 mm. Attention of follow-up is recommended. 7. Chronic pulmonary parenchymal changes as above with no airspace consolidation or pleural effusion. 8. Cardiomegaly with advanced coronary artery calcification. CT soft tissue of the neck: 1. Severe dilatation of the upper esophagus suggestive of achalasia versus obstructive distal lesion of indeterminate etiology. Recommend follow-up with upper endoscopy or upper GI series for further evaluation. 2. Calcified nodule within the left upper mediastinal/paraesophageal region, nonspecific and,, knee associated with sequela of previous granulomatous infection. If indicated, these findings may be further assessed with CT chest to include upper abdomen/gastric region. 3. 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
[2023-07-10] MEDS ORDERED: GADOBUTROL 30ML VIAL IV ONE (13:42)
[2023-07-10] MEDS ORDERED: OPTIRAY 320 100ml IV ONE (14:07)
--- NOTE | 2023-07-10 15:04 | CT Scan Report ---
CT OF THE CHEST WITH IV CONTRAST CLINICAL HISTORY: weight loss, dysphagia, non con CT ? esoph ca COMPARISON STUDY: Chest CT July 09, 2023. TECHNIQUE: Following IV administration of 94 mL of Optiray, helical axial images of the chest were o btained. Sagittal and coronal reconstructions were viewed as well as maximal intensity projections o n an independent 3-D workstation. Automated exposure control was utilized for the study. A dose low ering technique was utilized adhering to the principles of ALARA. CT DOSE: 1452.44 mGy.cm FINDINGS: As before, the esophagus is dilated and fluid-filled. There is mass-like thickening of the distal esophagus and GE junction. Extensive gastrohepatic ligament lymphadenopathy is noted. Index n ode on image 228 of 245 measures 3.5 x 3.3 cm. Several nodes are partially calcified. There are also several prominent distal paraesophageal lymph nodes. There is a peripherally calcified high left para tracheal lymph node on image 55 which measures 1.5 x 1.1 cm. Size of the heart is normal. There is no pericardial effusion. No consolidation needle is identified. Subpleural groundglass opacities favor atelectasis. A few small pulmonary nodules are noted. The largest is a 4 mm left upper lobe nodule on image 99. Please note that the abdomen and pelvis CT will be reported separately. No suspicious osse ous lesions are identified. IMPRESSION: 1. Mass-like thickening of the distal esophagus and GE junction with associated gastrohepatic ligamen t/paraesophageal lymphadenopathy. 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 Associated fluid-filled dilated esophagus. 2. Peripherally calcified 1.5 x 1.1 cm high left paratracheal lymph node. Given calcifications within pathologic abdominal lymph nodes, this may also represent a pathologic lymph node. 3. A few indeterminate pulmonary nodules measuring up to 4 mm. ACT 112: Negative or not required by law. Electronically signed by: Juan Hernandez M.D. 07/10/2023 3:02 PM
--- NOTE | 2023-07-10 15:10 | CT Scan Report ---
CT abdomen pelvis wo/w con HISTORY: 83 years-old Male weight loss, dysphagia, non con CT ? esoph ca Acute weight loss with poss ible mass of the distal esophagus. COMPARISON: Chest CT 07/09/2023. TECHNIQUE: Multiple axial CT images of the abdomen and pelvis were obtained with and without the use of IV contrast. A dose lowering technique was used consistent with the principals of XUAN. FINDINGS: Cardiomegaly. Fibrotic changes of the lung bases. No free air. Unremarkable spleen, pancreas, gallbla dder and adrenal glands. No hepatic mass lesion is identified. Patent portal vein. Bilateral renal si nus cysts. Contrast is noted within the bilateral renal collecting systems and ureters on the noncont rast study. distended urinary bladder. Prostatomegaly. Atherosclerosis of the aorta. Pathologically e nlarged upper abdominal lymph nodes are seen within the gastrohepatic distribution and adjacent to th e lesser curvature of the stomach tracking along the celiac trunk. Several of the lymph nodes are par tially calcified. The largest node versus conglomerate nodes measures up to 3.9 x 3.3 cm on image 85. Additional subcentimeter suspicious lymph nodes are seen adjacent to the distal esophagus. There is mass-like irregular wall thickening with luminal narrowing involving the distal esophagus, g astroesophageal junction and gastric cardia measuring up to approximately 6 cm in greatest dimension. This results in esophageal luminal narrowing with upstream esophageal distention. There is adjacent inflammatory wall thickening adjacent to the distal esophagus and proximal stomach. No small bowel ob struction. Colonic diverticulosis. No ascites. No evidence of acute appendicitis. No acute fracture o r destructive bone lesion is identified. IMPRESSION: 1. 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 2. There is periesophageal and proximal perigastric inflammatory stranding with possible transmural e xtension of disease. 3. 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 4. No evidence of hepatic or osseous metastasis. 5. No bowel obstruction. 6. Additional findings as above. ACT 112: Negative or not required by law. The above report was generated using voice recognition software. It may contain grammatical, syntax o r spelling errors. Dictated: 07/10/2023 2:34 PM Transcribed: 07/10/2023 3:03 PM Deshaun [id number] [email or web address] Electronically signed by: Deni Duran M.D. 07/10/2023 3:08 PM
--- NOTE | 2023-07-10 15:10 | Magnetic Resonance Report ---
MR brain wo/w con HISTORY: 83 years-old Male AMS acutely altered mental status. COMPARISON: CT soft tissue neck and chest CT studies 07/08/2023. TECHNIQUE: Multiplanar, multisequence MRI of the brain was obtained both with and without the use of IV contrast. FINDINGS: There is no restricted diffusion. Study is motion degraded. No acute intracranial hemorrhage, midline shift, abnormal extra-axial collection, hydrocephalus or intra-axial mass. No pathologic blooming ar tifact. Mild involutional changes with mild patchy T2/FLAIR hyperintense foci throughout the white ma tter. Cerebral venous sinuses and major arterial flow voids appear patent. Left greater than right mastoid effusions. Paranasal sinuses are generally clear. There is no abnormal enhancement. The cerebral veno us sinuses and major arterial flow voids appear patent. Skull, orbits and soft tissues are within nor mal limits. 1.5 cm left submandibular calcification. IMPRESSION: 1. Motion degraded exam. 2. No acute intracranial abnormality. No acute or subacute infarct. 3. No abnormal enhancement. 4. 1.5 cm left submandibular calcification, likely within the submandibular duct. ACT 112: Negative or not required by law. The above report was generated using voice recognition software. It may contain grammatical, syntax o r spelling errors. Dictated: 07/10/2023 1:56 PM Transcribed: 07/10/2023 2:08 PM Golden [id number] Alonso [id number] Electronically signed by: Deni Duran M.D. 07/10/2023 3:08 PM
[2023-07-10] MEDS: D5W AND NSS 1,000 ML IV SCH (17:27)
[2023-07-11] MEDS: HALOPERIDOL LACTATE 5 MG/ML 1 ML VIAL IM PRN ×2 (03:29→12:26)
[2023-07-11] MEDS: D5W AND NSS 1,000 ML IV SCH ×2 (05:07→19:25)
[2023-07-11 05:25] LABS: Basophils # (auto) 0.03 K/uL (0.00-0.20); Basophils % (auto) 0.4 %; Eosinophils # (auto) 0.04 K/uL (0.00-0.50); Eosinophils % (auto) 0.6 %; Hematocrit (blood only) 39.6 % (42.0-52.0); Hemoglobin 13.3 g/dl (14.0-18.0); Immature Granulocytes # (auto) 0.03 K/uL (0.01-0.20); Immature Granulocytes % (auto) 0.4 %; Lymphocytes # (auto) 0.92 K/uL (1.20-3.40); Mean Corpuscular Hemoglobin 30.6 pg (25.0-34.0); Mean Corpuscular Hgb Conc 33.6 g/dL (32.0-36.0); Mean Corpuscular Volume 91.2 fL (80.0-100.0); Mean Platelet Volume 9.8 fL (9.4-12.4); Monocytes # (auto) 0.73 K/uL (0.11-0.59); Monocytes % (auto) 10.3 %; Neutrophils # (auto) 5.31 K/uL (1.40-6.50); Neutrophils % (auto) 75.3 %; Platelet Count 321 K/uL (130-400); RDW Coefficient of Variation 12.6 % (11.5-14.5); RDW Standard Deviation 42.4 fL (36.4-46.3); Red Blood Count 4.34 M/uL (4.70-6.10); White Blood Count 7.06 K/ul (4.8-10.8)
[2023-07-11 05:39] LABS: Albumin Globulin Ratio 0.9 (0.9-2); Albumin Level 3.3 gm/dl (3.4-5.0); BUN Creatinine Ratio 17.6 (10-20); Calcium 8.4 mg/dl (8.6-10.3); Creatinine Clr Calc Pharmacy 71.6 ml/min; Est GFR (African American) 100.9 ml/min; Est GFR (Non-African American) 87.1 ml/min; Globulin 3.8 gm/dl (2.5-4.0); Magnesium 1.9 mg/dl (1.7-2.4); Phosphorus 2.3 mg/dl (2.5-4.9); Potassium 3.5 mmol/L (3.5-5.1); Total Protein 7.1 gm/dl (6.0-8.3)
--- NOTE | 2023-07-11 09:29 | Communication Note ---
Date of Service: July 11, 2023 83 yr old male admitted on 07/08 for dysphagia. This morning, vitals are stable, pt is NPO, he is sleeping comfortably. Two daughters are in the room w him. He has not had coughing or vomiting. He is saturating at 95% on room air. Plan is for EGD/EUS this afternoon.
--- NOTE | 2023-07-11 13:22 | Hospitalist Progress Note ---
Date of Service July 11, 2023 Assessment & Plan (1) Dysphagia: (2) Weight loss: (3) Prediabetes: (4) Vitamin B12 deficiency (dietary) anemia: Plan 83 y/o M with hx of Vit B12 def anemia, prediabetes, Trace mitral regurgitation, Mild aortic regurgitation, macular degenerationand s/pcataractsurgery admitted with worsening dysphagia and weight loss. Dysphagia Weight Loss Pt stated he has had worsening dysphagia and weight loss for months CT soft tissue neck- Notes severe dilatation of the upper esophagus suggestive of achalasia versus obstructive distal lesion of indeterminate etiology. CT chest noted the following: -Markedly dilated esophagus, which is filled with fluid/debris to the level of the thoracic inlet, concern for ability to aspirate -Concern for malignancy/an obstructing gastroesophageal mass lesion in the distal esophagus/gastric cardia -Bulky upper abdominal lymphadenopathy with calcifications concerning for metastatic disease -smaller but similar appearing calcified high left paratracheal node, as well as an enlarged right paraesophageal node -2 indeterminate pulmonary nodules which measure up to 3 mm. Attention of follow-up is recommended. -Cardiomegaly MRI Brain- grossly unremarkable. Notes a 1.5 cm left submandibular calcification, likely within the submandibular duct. Repeat CT chest and abd/pelvis with contrast done for staging-confirming esophageal malignancy GI consulted, appreciate recs. -EGD 07/11- results and recommendations noted. -Consider palliative care consult after further discussion with family/daughters -Pt previouslt NPO after a failed soft food/ice-cream trial, can eat ice chips Continue IVF, PRN IV phenergan Holding all home PO meds Noted that pt does chew tobacco daily Delirium Pt gets agitated and sundowns Currently in restraints CODE REZA called evening of 07/09, received a dose of Zyprexa 5mg IM Episode of bradycardia Currently ordered IM Haldol 2mg q2h prn for episodes of agitation, restraints On 07/11- 1:1 reduced to need only when family not in the room Hypoglycemia Pt currently NPO Episodes of hypoglycemia On fluids with d5w Prediabetes and Vit B12 def: Will hold PO meds at this time Diet: NPO at this time DVT PPx: holding in anticipation of procedure, SCDs ordered, pt considered high risk with malignancy Code Status: FULL CODE, consider discussing with family based on EGD results Admission and Anticipated Discharge Date Admission Date: July 08, 2023 Subjective Pt seen in the AM before his procedure. Was sleeping with one daughter in the room, still in restraints. Per nursing had just received antipsychotic. Review of Systems Review of Systems: Unobtainable due to cognitive status Physical Exam Physical Exam: General: sleeping Cachectic Psych: In restraints for agitation Neuro: sleeping HEENT: NC/AT Chest: Nontender to palpation. CV: RRR Resp: no increased effort of breathing. Abdomen: Soft, tender Extremities: No edema in lower extremities bilaterally. Results & Data Results & Data Vital Signs (Past 12 Hours) Vital Signs Temp Pulse Pulse Resp BP BP Pulse Ox 07/11/23 11:33 36.1 C L 62 18 112/70 96 07/11/23 08:59 55 L 07/11/23 07:36 36.8 C 57 L 18 117/67 95 07/11/23 03:27 36.6 C 69 18 149/86 H 93 O2 Del Method 07/11/23 11:33 Room Air 07/11/23 08:59 07/11/23 07:36 Room Air 07/11/23 03:27 Room Air
[2023-07-11] MEDS ORDERED: PROPOFOL IV EMULSION 10 MG/ML 20 ML VIAL IV ONE (16:07)
[2023-07-11] MEDS ORDERED: fentaNYL citrate PF 100 MCG/2 ML VIAL ONE (16:07)
[2023-07-11] MEDS ORDERED: SUCCINYLCHOLINE 100MG/5ML SYR IV ONE (16:07)
[2023-07-11] MEDS ORDERED: ONDANSETRON INJ 2 MG/ML 2 ML VIAL ONE (16:07)
[2023-07-11] MEDS ORDERED: LIDOCAINE 2% 2 ML VIAL/AMP(20MG/ML) INFIL ONE (16:07)
[2023-07-11] MEDS ORDERED: SUCCINYLCHOLINE CHLORIDE 20 MG/ML 10 ML VIAL IV ONE (16:30)
--- NOTE | 2023-07-11 16:35 | History & Physical Bridge Note ---
Date of Service July 11, 2023 History & Physical Bridge Note I have examined the patient, reviewed the History & Physical and in the interval since the performance of the History & Physical I have noted the following changes of clinical significance: no changes noted Discussed with family and POA about EGD/EUS for suspected esophageal malignancy. Consent obtained. Explained risks, benefits, limitations and alternatives of the above endoscopic procedure. Risks of intravenous sedation used for procedure were also explained. Risks include, but not limited to perforation, bleeding, infection, respiratory distress, cardiac arrest and . Risk of stent migration, chest pain and reflux.
[2023-07-11] MEDS ORDERED: ATROPINE SULFATE 0.1 MG/ML 10ML SYR IV PRN (16:41)
[2023-07-11] MEDS ORDERED: HYDROmorphone INJ 2 MG/ML SYR/VIAL IV PRN (16:41)
[2023-07-11] MEDS ORDERED: fentaNYL citrate PF 100 MCG/2 ML VIAL IV PRN (16:41)
[2023-07-11] MEDS ORDERED: ePHEDrine sulfate 50 MG/ML AMP IV PRN (16:41)
--- NOTE | 2023-07-11 18:08 | Operative Report ---
Post Operative Report Pre & Post Diagnosis Operation Date: 07/11/23 15:50 Pre-Op Diagnosis: Dysphagia Post-Op Diagnosis: Dysphagia I identified the patient and participated in the time-out.: Yes Procedure Operation Date: 07/11/23 15:50 Actual Procedures p Esophagogastroduodenoscopy, with Biopsy and Nasogastric Tube Placement(Not Applicable) - Henry Murillo MD Surgeon Henry Murillo MD Tow Driver None Estimated Blood Loss 0 Findings See Below (Giant ulcerated GEJ mass with grossly distended esophagus, food cleaned, no stent placed) Specimens Mass Bx Description of Procedure EGD I attest to the content of the Intraoperative Record and any orders documented therein. Any exceptions are noted below.
--- NOTE | 2023-07-11 18:33 | GI REPORT ---
Patient Name: Zia Cheung Procedure Date: 07/11/2023 4:37 PM Date of : 1940 Admit Type: Inpatient Age: 83 Gender: Male Attending MD: Henry Murillo MD, Procedure: Upper GI endoscopy Providers: Henry Murillo MD Referring MD: Catherine England MD, Anneliese Barba Md Indications: Dysphagia, Abnormal CT of the GI tract Medicines: General Anesthesia Complications: No immediate complications. Estimated Blood Loss: Estimated blood loss: none. Procedure: Pre-Anesthesia Assessment: - Prior to the procedure, a History and Physical was performed, and patient medications, allergies and sensitivities were reviewed. The patient's tolerance of previous anesthesia was reviewed. - The alternatives, risks and benefits of the procedure were discussed at length with the patient's daughter. The patient's proxy verbalized understanding of the risks as well as the alternatives and wished to proceed with the procedure. - Patient identification and proposed procedure were verified prior to the procedure by the physician and the nurse. The procedure was verified in the procedure room. - Pre-procedure physical examination revealed no contraindications to sedation. After obtaining informed consent, the endoscope was passed under direct vision. Throughout the procedure, the patient's blood pressure, pulse, and oxygen saturations were monitored continuously. The Endoscope was introduced through the mouth, and advanced to the second part of duodenum. The upper GI endoscopy was accomplished without difficulty. The patient tolerated the procedure well. Findings: The lumen of the esophagus was severely dilated. Food and liquid was found in the entire esophagus. Removal was accomplished with a Espitia net. A large, fungating, submucosal and ulcerating mass with bleeding and stigmata of recent bleeding was found in the distal esophagus, at the gastroesophageal junction and in the cardia extending midway into the lesser curvature of the stomach. The mass was partially obstructing and circumferential (involving 100% of the lumen circumference). Biopsies were taken with a cold forceps for histology. Verification of patient identification for the specimen was done by the physician and nurse using the patient's name and date. The entire examined stomach was normal. The duodenal bulb and second portion of the duodenum were normal. 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 Biopsied. Esophageal stent was not placed due to risk of bleeding from erosion of the stent into the deep ulcer with high migration risk due to distended esophageal lumen. I spoke to the POA intraprocedural and she declined Feeding tube placement. Recommendation: - Return patient to [facility] for [facility] care. - Consider Palliative consult. Henry Murillo MD 07/11/2023 6:33:37 PM This report has been signed electronically. Note Initiated On: 07/11/2023 4:37 PM Number of Addenda: 0 I attest to the content of the Intraoperative Record and orders documented therein, exceptions below {[id number]}
--- NOTE | 2023-07-11 20:56 | Anesthesiology Progress Note ---
Date of Service July 11, 2023 Anesthesia Post Procedure Vital Signs Vital Signs: Temp Pulse Pulse Pulse Pulse Resp BP 07/11/23 20:26 37.0 C 54 L 18 95/59 L 07/11/23 19:55 36.8 C 62 18 103/62 07/11/23 19:35 36.7 C 53 L 18 07/11/23 19:21 36.5 C 60 18 07/11/23 19:05 36.5 C 55 L 18 07/11/23 18:55 36.6 C 62 20 119/60 07/11/23 18:45 72 20 97/57 L 07/11/23 18:35 70 20 106/67 07/11/23 18:25 72 18 123/67 07/11/23 18:18 36 C L 80 14 126/93 07/11/23 17:23 53 L 07/11/23 16:22 37.6 C H 55 L 18 119/74 07/11/23 15:32 118/79 07/11/23 15:23 37.3 C 54 L 18 118/92 07/11/23 11:33 36.1 C L 62 18 112/70 07/11/23 08:59 55 L 07/11/23 07:36 36.8 C 57 L 18 117/67 07/11/23 03:27 36.6 C 69 18 07/10/23 21:59 62 07/10/23 22:20 36.6 C 68 18 BP Pulse Ox O2 Del Method O2 Flow Rate 07/11/23 20:26 97 Room Air 07/11/23 19:55 97 Room Air 07/11/23 19:35 101/60 97 Room Air 07/11/23 19:21 109/66 97 Room Air 07/11/23 19:05 118/69 99 Room Air 07/11/23 18:55 96 Room Air 07/11/23 18:45 94 Room Air 07/11/23 18:35 98 Room Air 07/11/23 18:25 100 Oxymask 10 07/11/23 18:18 100 Oxymask 10 07/11/23 17:23 07/11/23 16:22 97 Room Air 07/11/23 15:32 07/11/23 15:23 97 Room Air 07/11/23 11:33 96 Room Air 07/11/23 08:59 07/11/23 07:36 95 Room Air 07/11/23 03:27 149/86 H 93 Room Air 07/10/23 21:59 07/10/23 22:20 152/74 H 96 Room Air Pain Intensity Medial Chest: Pain Intensity: 5 Transfer of Care Handoff Completed per policy Notes Mental Status: alert / awake / arousable Patient Amnestic to Procedure: Yes Nausea / Vomiting: adequately controlled Pain: adequately controlled Airway Patency, RR, SpO2: stable & adequate BP & HR: stable & adequate Hydration State: stable & adequate Anesthetic Complications: no major complications apparent
[2023-07-12 05:22] LABS: Basophils # (auto) 0.04 K/uL (0.00-0.20); Basophils % (auto) 0.6 %; Eosinophils # (auto) 0.12 K/uL (0.00-0.50); Eosinophils % (auto) 1.7 %; Hematocrit (blood only) 34.7 % (42.0-52.0); Hemoglobin 11.5 g/dl (14.0-18.0); Immature Granulocytes # (auto) 0.02 K/uL (0.01-0.20); Immature Granulocytes % (auto) 0.3 %; Lymphocytes # (auto) 1.07 K/uL (1.20-3.40); Lymphocytes % (auto) 15.6 %; Mean Corpuscular Hemoglobin 30.4 pg (25.0-34.0); Mean Corpuscular Hgb Conc 33.1 g/dL (32.0-36.0); Mean Corpuscular Volume 91.8 fL (80.0-100.0); Mean Platelet Volume 9.9 fL (9.4-12.4); Monocytes # (auto) 0.69 K/uL (0.11-0.59); Neutrophils # (auto) 4.94 K/uL (1.40-6.50); Neutrophils % (auto) 71.8 %; Platelet Count 220 K/uL (130-400); RDW Coefficient of Variation 12.9 % (11.5-14.5); RDW Standard Deviation 42.8 fL (36.4-46.3); Red Blood Count 3.78 M/uL (4.70-6.10); White Blood Count 6.88 K/ul (4.8-10.8)
[2023-07-12] MEDS: D5W AND NSS 1,000 ML IV SCH ×2 (05:24→18:05)
[2023-07-12 05:38] LABS: Albumin Globulin Ratio 0.9 (0.9-2); Albumin Level 2.7 gm/dl (3.4-5.0); BUN Creatinine Ratio 17.2 (10-20); Bilirubin,Total 0.9 mg/dl (0.2-1.0); Calcium 7.6 mg/dl (8.6-10.3); Est GFR (African American) 103.5 ml/min; Est GFR (Non-African American) 89.3 ml/min; Globulin 3.1 gm/dl (2.5-4.0); Magnesium 1.8 mg/dl (1.7-2.4); Phosphorus 2.5 mg/dl (2.5-4.9); Potassium 3.3 mmol/L (3.5-5.1); Total Protein 5.8 gm/dl (6.0-8.3)
--- NOTE | 2023-07-12 08:25 | Hospitalist Progress Note ---
Date of Service July 12, 2023 Assessment & Plan (1) Esophageal mass: (2) Dysphagia: (3) Weight loss: (4) Prediabetes: (5) Vitamin B12 deficiency (dietary) anemia: (6) NSVT (nonsustained ventricular tachycardia): Plan: Tele report of NSVT 18 beats on telemetry. Will await goals of care conversation prior to significant workup for this. Cont repletion of potassium and add 1gm Mag IV with level 1.8 this am. Plan 83 y/o M with hx of Vit B12 def anemia, prediabetes, Trace mitral regurgitation, Mild aortic regurgitation, macular degenerationand s/pcataractsurgery admitted with worsening dysphagia and weight loss. Dysphagia Weight Loss Pt stated he has had worsening dysphagia and weight loss for months CT soft tissue neck- Notes severe dilatation of the upper esophagus suggestive of achalasia versus obstructive distal lesion of indeterminate etiology. CT chest noted the following: -Markedly dilated esophagus, which is filled with fluid/debris to the level of the thoracic inlet, concern for ability to aspirate -Concern for malignancy/an obstructing gastroesophageal mass lesion in the distal esophagus/gastric cardia -Bulky upper abdominal lymphadenopathy with calcifications concerning for metastatic disease -smaller but similar appearing calcified high left paratracheal node, as well as an enlarged right paraesophageal node -2 indeterminate pulmonary nodules which measure up to 3 mm. Attention of follow-up is recommended. -Cardiomegaly MRI Brain- grossly unremarkable. Notes a 1.5 cm left submandibular calcification, likely within the submandibular duct. Repeat CT chest and abd/pelvis with contrast done for staging-confirming esophageal malignancy GI consulted, appreciate recs. -EGD 07/11- results and recommendations noted. -Consider palliative care consult after further discussion with family/daughters -Pt previously NPO after a failed soft food/ice-cream trial, can eat ice chips Continue IVF, PRN IV phenergan Holding all home PO meds Noted that pt does chew tobacco daily Delirium Pt gets agitated and sundowns Currently in restraints CODE REZA called evening of 07/09, received a dose of Zyprexa 5mg IM Episode of bradycardia Currently ordered IM Haldol 2mg q2h prn for episodes of agitation, restraints On 07/11- 1:1 reduced to need only when family not in the room Hypoglycemia Pt currently NPO monitor for hypoglycemia. Prediabetes and Vit B12 def: Will hold PO meds at this time Diet: NPO at this time DVT PPx: holding in anticipation of procedure, SCDs ordered, pt considered high risk with malignancy Code Status: FULL CODE, await further [facility] conversation with GI specialist today and palliative care provider. DO [facility] Hospitalist Admission and Anticipated Discharge Date Admission Date: July 08, 2023 Subjective 83 yo M reports two months of dysphagia. Denies weight loss, abdominal pain or blood per rectum. OK with just small sips and chips at this time. Patient verbalized understanding that there was a mass in his esophagus found with some bleeding present yesterday and that this may be malignant. Palliative was consulted and daughter walked in after exam. Chastity reports that GI specialist was meeting she and her family this afternoon around 2pm to discuss findings and treatment options. Cont NPO until that time. Tele report of NSVT 18 beats on telemetry. Will await goals of care conversation prior to significant wowrkup for this. Physical Exam Physical Exam: CONSTITUTIONAL: thin, frail, vitals as above, generally NAD EYES: normal conjunctivae, no scleral icterus ENT: external ear and nose normal, MMM NECK: trachea midline RESPIRATORY: clear to auscultation bilaterally, no crackles, rales or wheezes, normal respiratory effort CARDIOVASCULAR: regular rate and rhythm, S1 and 2 heard without murmurs, gallops or rubs, no JVD, no peripheral edema CHEST: inspection of chest was normal GASTROINTESTINAL: normal bowel sounds, soft, nontender, ND, no guarding MUSCULOSKELETAL: strength 5/5 throughout, head is normocephalic and atraumatic SKIN: warm and dry NEUROLOGIC: CN 2-12 grossly intact, no sensory deficit, normal cognition, normal speech, no tremor PSYCHIATRIC: alert cooperative and oriented to person, place and time. Euthymic mood, makes good eye contact, language grossly intact, recent and remote memory grossly intact. Results & Data Results & Data Vital Signs (Past 12 Hours) Vital Signs Temp Pulse Pulse Resp BP BP Pulse Ox 07/12/23 07:52 37.4 C 53 L 17 102/60 93 07/12/23 07:16 52 L 07/12/23 03:00 36.8 C 58 L 20 101/59 L 93 07/11/23 22:01 47 L 07/12/23 00:11 36.8 C 75 18 110/64 95 07/11/23 22:14 37.9 C H 50 L 18 94/56 L 95 07/11/23 20:58 37.0 C 48 L 18 94/57 L 95 07/11/23 20:26 37.0 C 54 L 18 95/59 L 97 O2 Del Method 07/12/23 07:52 Room Air 07/12/23 07:16 07/12/23 03:00 Room Air 07/11/23 22:01 07/12/23 00:11 Room Air 07/11/23 22:14 Room Air 07/11/23 20:58 Room Air 07/11/23 20:26 Room Air Laboratory Results Short CBC 07/12/23 Range/Units 05:02 WBC 6.88 (4.8-10.8) K/ul Hgb 11.5 L (14.0-18.0) g/dl Hct 34.7 L (42.0-52.0) % Plt Count 220 (130-400) K/uL [facility] 07/12/23 05:02 Sodium 140 Potassium 3.3 L Chloride 112 H Carbon Dioxide 24 BUN 11 Creatinine 0.64 Glucose 139 H Calcium 7.6 L Liver Function 07/12/23 Range/Units 05:02 Total Bilirubin 0.9 (0.2-1.0) mg/dl AST 35 (13-39) U/L ALT 13 (7-52) U/L Alkaline Phosphatase 52 (34-104) U/L Albumin 2.7 L (3.4-5.0) gm/dl Medications Administered Current Inpatient Medications Haloperidol Lactate (Haloperidol Lactate 5 Mg/Ml 1 Ml Vial) 2 mg IM Q2H PRN PRN Reason: Agitation Stop: 08/09/23 00:00 Last Admin: 07/11/23 12:26 Dose: 2 mg Promethazine HCl 6.25 mg/ (Sodium Chloride) 50.25 mls @ 201 mls/hr IV Q6H PRN PRN Reason: Nausea And Vomiting Stop: 08/08/23 20:03 Dextrose/Sodium Chloride (D5w And Nss) 1,000 mls @ 80 mls/hr IV .[id number] MAYO Stop: 08/09/23 17:29 Last Admin: 07/12/23 05:24 Dose: 80 mls/hr Potassium Chloride (K Dez / Wtr) 10 meq in 100 mls @ 100 mls/hr IV Q1H MAYO Stop: 07/12/23 10:29
[2023-07-12] MEDS: POTASSIUM CHLORIDE / WTR 10 MEQ/100 ML PLCT IV SCH ×2 (10:22→11:30)
[2023-07-12] MEDS: PANTOprazole 40 MG in SYRINGE 0 ML IV SCH ×2 (10:22→19:41)
[2023-07-12] MEDS ORDERED: MAGNESIUM SULFATE / D5W 1 GM/100 ML BAG IV ONE (11:16)
--- NOTE | 2023-07-12 11:47 | XRay Report ---
XR chest 1V portable HISTORY: R/O Aspiration Pneumonia COMPARISON: Chest CT 07/10/2023. Chest x-ray 07/08/2023. FINDINGS: No pneumothorax. No pleural effusions. No new focal lung consolidations to suggest a pneumo nixon. No evidence for pulmonary edema. The cardiac silhouette is top normal in size. There are calcifi cations within the aortic knob. IMPRESSION: No new focal lung consolidations to suggest a pneumonia. ACT 112: Negative or not required by law. Electronically signed by: Maury Schuler M.D. 07/12/2023 11:46 AM
[2023-07-13] MEDS: D5W AND NSS 1,000 ML IV SCH ×2 (06:15→21:23)
--- NOTE | 2023-07-13 08:39 | Palliative Care Consultation ---
Date of Consultation July 13, 2023 Assessment & Plan (1) Delirium: This has been improving since admission. The presence of his family at the bedside has also eased his agitation and restlessness. He has not required restraints in the last 24 hours. (2) Dysphagia: large, fungating mass distal esophagus, biopsy pending (3) Weakness generalized: (4) Weight loss: (5) Palliative care by specialist: Met with pt/family. Provided overview of Palliative Medicine, a subspecialty that provides specialized medical care for people living with a serious illness by offering a focus on quality of life. Palliative Medicine is often conflated with hospice: I advised patient/family that Palliative and hospice can be partners but we are not the same. It is important to understand the difference so that we may be informed, and not afraid. Palliative Medicine works to improve QOL through reduction of symptom burden/more control over their illness, for both the patient and family. Palliative medicine clinicians are board certified, specially-trained and another member of the patient's medical care team. We often provide an extra layer of support because our care is based on the needs of the patient, not the prognosis; as such, it's appropriate at any age /advancing stage of a serious illness and can be provided along with curative treatment. Palliative Medicine clinicians are also trained in advanced communication methodologies, to facilitate complex discussions about advanced illness planning, which are needed to help assure that the treatment choices match the patient's goals, aka delivering Goal Concordant care. Finally, we discussed that hospice is a visiting nurse service that focuses on care delivered at the very end of life for patients with terminal illness, with life expectancy less than 6 month. (6) Advanced care planning/counseling discussion: Met with patient and his daughters x3 [id number] at the bedside for 60 minutes this afternoon. We reviewed the course of his illness, findings to date, and acknowledge that a biopsy is pending. They unanimously affirm he would not desire any cancer treatment. He was open to testing to determine if this was a cancer and if so, what kind, to perhaps help his family with future preventive health screenings. But he was firm and very clear that he does not desire any escalation or cancer directed care. We talked about the role of some palliative cancer directed therapies which may help to improve comfort. For example, the role of palliative radiation to help reduce bleeding and tumor related discomfort particularly those tumors of an obstructive nature. It may be possible that some radiation therapy could help improve his ability to tolerate and enjoy p.o. intake. This would be entirely dependent on evaluation by a radiation oncologist before any plan could be proposed as it is ultimately their determination. They are very clear he would not desire any chemo. They would not want any therapies to prolong his life with an advanced cancer diagnosis. They asked about the timing for results of the biopsy to come back and acknowledge that tomorrow will juan approximately 72 hours since his procedure. I advised the generally results can take 3 to 5 days and that if possible, we can asked the lab tomorrow for a preliminary finding if they have 1 available for us. We discussed CODE STATUS. His daughters all affirm that he has been co nsistently in no code and does not desire CPR or resuscitative efforts. 1 daughter notes that in the emergency room, when he was questioned about possibly desiring CPR, the way that it was phrase to him was "do you want this?" With a demonstration of hands pumping on the chest. Patient they feel interpreted this to mean pumping his stomach to remove what was stuck in residing in his esophagus. They also note that he was confused, agitated, combative and delirious on arrival. It is unlikely he was in his right mind and able to make a decision. Since his mentation has cleared a little bit and his family has been present at his side, further conversations with him have consistently been in line with his prior expressed wishes for no aggressive care, no CPR, and no invasive escalation. They are all in agreement for no code, DNR/DNI. The POLST form was reviewed and discussed with patient/family today. We specifically discussed that POLST is an approach to end-of-life planning that em phasizes patients wishes about the care they receive. The POLST Paradigm, which stands for Physician Orders for Life Sustaining Treatment, is an approach to end-of-life planning emphasizing: (i) advance care planning conversations between patients, health hearing care professional and loved ones; (ii) shared decision-making between a patient and his/her health janitor caretaker about the care the patient would like to receive at the end of his/her life and (iii) ensuring patient wishes are honored. We discussed that the POLST form is a medical order indicating a patients wishes regarding treatments that are commonly used in a medical crisis. It is a medical order, therefore emergency personnel such as paramedics, service desk director, and emergency physicians must follow these orders. Without a POLST form, paramedics and service desk director are required to provide every possible medical treatment to sustain life. Patient/family advised that the [place] POLST form is a very bright PINK colored form designed for immediate, easy location and which gives them a way to tell doctors, nurses, and other health hearing care professional what types of treatment they do and do not want. A POLST form was completed today and today's completed POLST orders reflect patient's preferences, wishes and selections of what treatments he desires now in his current state of health. Dtrs x 3 verbalized understanding and all questions were answered to their apparent satisfaction. Daughter Katie is POA and HCP. A copy of the POLST form has been uploaded into EMR and the original was provided to POA/dtr Katie along with 2 copies for each of the other daughters present. They have met earlier today with care management to discuss the option of returning home with hospice. They are very familiar with home hospice from prior family members and they are comfortable being the caregivers for him at this stage. They asked about the options for DME support in the home through hospice and asked what would happen if he needed to be suctioned. I advised him that depending on that hospice agency, sometimes a home suction machine could be provided and the nurses would demonstrate how to use it and trained them how to use it so they can facilitate suctioning for patient when needed. I encouraged them to discuss this concern with care management to assure that whichever hospice agency they chose, would be able to provide him with in-home suction, likely via a Goo suction machine. We discussed the goals of hospice as a patient service and the goals of care; we discussed EOL trajectories and transitions jefry the emotional impact of realizing mortality as a concrete reality from prior abstract considerations. Pt was reassured that no matter where they are along this trajectory, they are not alone - their medical team will remain by their side through their journey. Discussed the pros/cons of accepting help when especially weakened and distressed by pain-which would also help provide relief/decrease caregiver burden/strain. I provided education about the hospice benefit: an interdisciplinary program offered by nurses, nurses aides, social workers, chaplains and a medical care manager for patients with a terminal condition and a life expectancy of less than 6 months. This is covered by Medicare at 100%/no out of pocket expense to patient and all meds/supplies needed by patient for the reason they are on hospice are paid for/covered by hospice. The goal is assure quality of life of the patient in their home setting (home, fpc, inpatient hospice setting) by providing symptoms management, psychosocial and spiritual support. However, they cannot offer 24 hours care and if the family is unable to provide that care, they will have to consider personal care with out of pocket cost vs. fpc placement. We discussed the goals of hospice as a patient service and the goals of care; we discussed EOL trajectories and transitions jefry the emotional impact of realizing mortality as a concrete reality from prior abstract considerations. Pt was reassured that no matter where they are along this trajectory, they are not alone - their medical team will remain by their side through their journey. Discussed the pros/cons of accepting help when especially weakened and distressed by pain-which would also help provide relief/decrease caregiver burden/strain. Discussed changes pt may move through in the dying process including but not limited to sleeping more, disorientation when awake, restlessness, diminished senses/inability to respond to stimulus although ability to be aware of them remains intact longer, changes in body temperatures, skin changes/mottling/cyanosis, respiratory pattern changes, oral secretions. Family verbalized understanding. The goal is to assure a peaceful . Plan * ACP discussion as noted above * Family discussed further after POLST completion whether or not they would wish to pursue some cancer directed treatment. When I returned to the room, they informed me they do not wish to pursue any cancer directed treatment. They note that even if patient would potentially have some benefit from palliative radiation, once he returns home, he would not agree to come back to the hospital. Furthermore, he is aware that there is a discharge planned for Monday and he would not agree to stay past the date of discharge. They are very clear that there comfortable respecting and honoring his wishes. They also state that these have been very clear wishes that he has had for many years, noting that there were prior family members such as his mother who from cancer after a very brief trial of cancer directed therapies that ultimately made them become sicker and unable to tolerate continued therapies. * POLST form completed as outlined above. CODE STATUS changed to DNR/DNI in accordance with patient's known and expressed wishes. Family is in agreement. Copy of the POLST form has been provided for scanning, 2 additional copies were provided to reach of his daughters, and the original POLST form was returned to his daughter Katie who is also his power of beam machine operator. * I have updated nursing and the primary team. * Please note: the above document was generated using voice recognition software. It may contain unintentional grammatical, syntax or spelling errors. Any formal questions or concerns about the content, text or information contained within the body of this dictation should be directly addressed to the provider for clarification. Thank you for allowing us to participate in the ongoing care of this patient. Please don't hesitate to call or page with any additional concerns. Dr. Cinda Terry DNP Director, Palliative Care History of Present Illness Reason for Consultation: unable to eat, likely esoph cancer Attending Physician: Ambreen Mckeon, History of Present Illness Zia is an 83yo male with worsening dysphagia and weight loss for months. So far this admission, testing revealed" CT soft tissue neck- Notes severe dilatation of the upper esophagus suggestive of achalasia versus obstructive distal lesion of indeterminate etiology. CT chest noted the following: -Markedly dilated esophagus, which is filled with fluid/debris to the level of the thoracic inlet, concern for ability to aspirate -Concern for malignancy/an obstructing gastroesophageal mass lesion in the distal esophagus/gastric cardia -Bulky upper abdominal lymphadenopathy with calcifications concerning for metastatic disease -smaller but similar appearing calcified high left paratracheal node, as well as an enlarged right paraesophageal node -2 indeterminate pulmonary nodules which measure up to 3 mm. Attention of follow-up is recommended. -Cardiomegaly MRI Brain- grossly unremarkable. Notes a 1.5 cm left submandibular calcification, likely within the submandibular duct. Repeat CT chest and abd/pelvis with contrast done for staging-confirming esophageal malignancy EGD: large fungating mass distal esophagus with bleeding and stigmata of bleeding. BIOPSY PENDING Patient is seen bedside with his 3 daughters present. With their presence in the room, he has been calmer and less agitated. He is currently tolerating ice chips, Turk[place] ices, applesauce and small sips of water. He is still tired and overall weak but will at times be more interactive with his family. He is subdued and rather withdrawn at the time of my evaluation. He is still intermittently confused and cannot provide HPI. His daughter shares that prior to this admission, he was doing very well living on his own, in his private home. He did not demonstrate any concern and behaviors of dementia. He was able to manage his household tasks and finances safely. They share that he has never been a fan of doctoring. A few years ago, they were forced to get him a PCP so that he could be evaluated and then subsequently have cataract surgery. He still after that did not pursue basic primary care or preventive health visits. They are clear he would not desire any aggressive or escalating medical interventions. They also share that he has always been very clear that when it is his time to go, he wants to be home and comfortable. Allergies Allergy/AdvReac Type Severity Reaction Status Date / Time No Known Allergies Allergy Unverified 07/08/23 15:13 Home Medications Medication Instructions Recorded Confirmed Type cyanocobalamin (vitamin B-12) 1,000 mcg PO QAM 07/08/23 07/08/23 History 1,000 mcg sublingual tablet Patient History Medical History Macular degeneration Mild aortic regurgitation Prediabetes Vitamin B12 deficiency (dietary) anemia Surgical History Hx of appendectomy Social History (Updated 07/08/23 @ 18:27 by Geovany Mclean MD) Smoking Status: Former smoker Tobacco Type: Smokeless Tobacco (Dip or Chew) Second Hand Exposure: No; Do You Dip or Chew Tobacco: No; Tobacco Cessation Education Requested by Patient: No Hx Alcohol Use: No Hx Substance Use: No Preferred Language: Korean Communication Ability: Effective Communication Ability Comment: Visual Impairement Supervisor Force Adjustment Required: No Beliefs That Will Affect Care: None Current Living Situation: Alone Other Information That Helps Us Care for You: No Feels Safe at Home: Yes Safety Concerns: Feels Safe At This Time Assistive Devices: Cane Review of Systems Review of Systems: All systems reviewed & are unremarkable except as noted in Subjective Physical Exam Physical Exam: Limited exam, patient observed to be resting comfortably with no acute distress. He is withdrawn and does not offer much feedback or interaction. He does answer his children appropriately when they inquire after his needs and was noted to be tolerating some ice chips during the visit. Respiratory effort appears normal with no use of accessory muscles noted. He is pale and mildly diaphoretic. He appears to be alert to self, possibly to place. Results & Data Vital Signs (Past 12 Hours) Vital Signs Temp Pulse Pulse Resp BP Pulse Ox O2 Del Method 07/13/23 07:58 36.6 C 56 L 16 122/77 95 Room Air 07/13/23 07:17 58 L 07/13/23 04:03 66 16 136/80 93 Room Air 07/12/23 23:55 37.1 C 59 L 20 121/64 93 Room Air 07/12/23 22:02 78 Laboratory Results Data reviewed Diagnostic Findings Data reviewed PG Care Time/CCT Total # of Minutes Spent Total Time Spent: 120 Total Time Spent with Patient: Total time spent is greater than 50% in coordination of care (as documented) at patient's floor/unit and/or counseling patient: I spent 120 minutes overall addressing this very complex case: 15 in medical data review/discussion with referring provider(s) and/or preparation for the visit 20 in direct interaction with the patient 60 Advance Care Planning/Goals of Care discussions as detailed above in note (must be >16min) 10 in subsequent review and synthesis of assessment and plan 15 communicating with other providers regarding the patient's case: primary team, nursing, care mgt Prolonged Care Time Prolonged Care Time: Yes Advanced Care Planning 65035 Advanced Care Planning 30 Min 20047 Advanced Care Planning Additional 30 [place] [address] IN/OBS CONSULT LVL 5,80M Patient Type New History Comprehensive Exam Comprehensive Medical Decision Making High Complexity Diagnoses Delirium R41.0 Dysphagia R13.10 Weakness generalized R53.1 Weight loss R63.4 Palliative care by specialist Z51.5 Advanced care planning/counseling discussion Z71.89 Additional Codes Advanced Care Planning - 52664 Advanced Care Planning 30 Min: 66274 Advanced Care Planning 30 Min ([id number]) Advanced Care Planning - 82871 Advanced Care Planning Additional 30 Min: 09773 Advanced Care Planning Additional 30 Min ([id number]) Prolonged Care Time - Prolonged Care Time: Yes ([id number])
[2023-07-13 09:41] LABS: BUN Creatinine Ratio 17.2 (10-20); Calcium 7.4 mg/dl (8.6-10.3); Creatinine Clr Calc Pharmacy 78.3 ml/min; Est GFR (African American) 103.5 ml/min; Est GFR (Non-African American) 89.3 ml/min; Phosphorus 1.6 mg/dl (2.5-4.9); Potassium 3.4 mmol/L (3.5-5.1)
[2023-07-13] MEDS: PANTOprazole 40 MG in SYRINGE 0 ML IV SCH ×2 (09:57→20:54)
[2023-07-13] MEDS ORDERED: POTASSIUM PHOS 3 MMOL/1 ML INFUSION IV STA (12:02)
[2023-07-13] MEDS: POTASSIUM ACETATE/NSS 10 MEQ/105 ML BAG IV SCH ×2 (13:12→14:59)
[2023-07-13] MEDS ORDERED: POTASSIUM PHOSPHATE 30 MMOL in SODIUM CHLORIDE 0.9% 500 ML IV ONE (14:30)
[2023-07-13] MEDS ORDERED: ACETAMINOPHEN 1,000 MG/100 ML VIAL IV STA (20:03)
--- NOTE | 2023-07-13 21:11 | Hospitalist Progress Note ---
Date of Service July 13, 2023 Assessment & Plan (1) Esophageal mass: (2) Dysphagia: (3) Weight loss: (4) Prediabetes: (5) Vitamin B12 deficiency (dietary) anemia: (6) NSVT (nonsustained ventricular tachycardia): Plan: Tele report of NSVT 18 beats on telemetry. Cont to replete lytes as needed. Patient and family are leaning toward hospice care and not in favor of extensive workups. DC telemetry at this time. Code status updated to DNR. Plan 83 y/o M with hx of Vit B12 def anemia, prediabetes, Trace mitral regurgitation, Mild aortic regurgitation, macular degenerationand s/pcataractsurgery adm itted with worsening dysphagia and weight loss. Esophageal mass, presumed malignant Dysphagia Weight Loss CT soft tissue neck- Notes severe dilatation of the upper esophagus suggestive of achalasia versus obstructive distal lesion of indeterminate etiology. CT chest noted the following: -Markedly dilated esophagus, which is filled with fluid/debris to the level of the thoracic inlet, concern for ability to aspirate -Concern for malignancy/an obstructing gastroesophageal mass lesion in the distal esophagus/gastric cardia -Bulky upper abdominal lymphadenopathy with calcifications concerning for metastatic disease -smaller but similar appearing calcified high left paratracheal node, as well as an enlarged right paraesophageal node -2 indeterminate pulmonary nodules which measure up to 3 mm. Attention of follow-up is recommended. -Cardiomegaly MRI Brain- grossly unremarkable. Notes a 1.5 cm left submandibular calcification, likely within the submandibular duct. Repeat CT chest and abd/pelvis with contrast done for staging-confirming esophageal malignancy GI consulted, appreciate recs. -EGD 07/11- results and recommendations noted. -Consider palliative care consult after further discussion with family/daughters -Pt previously NPO after a failed soft food/ice-cream trial, can eat ice chips -today progressing to full liquids/soft foods as tolerated. Noted that pt does chew tobacco daily I was later contacted by palliative provider that family do not wish to have radiation or chemotherapy considered. Code status updated to DNR. Delirium required restraints temporarily overnight CODE LIBIA called evening of 07/09, received a dose of Zyprexa 5mg IM resolved and he has reliably been off the one to one status. Diet: tolrating clears, advance to soft foods for comfort. DVT PPx: holding in setting of bleeding mass Code Status: DNR Dispo-home with hospice this weekend. DC telemetry. I spent a total [id number] coordinating, documenting, and providing care for this patient excluding time spent in the performance of separately billed services DO Joyce Beltran Hospitalist Admission and Anticipated Discharge Date Admission Date: July 08, 2023 Subjective 83 yo M with new esophageal mass, presumed to be malignant. pathology pending. Pt and three daughters were present in the room today family and patient leaning toward hospice Still awaiting input from palliative provider. Discussed options for possible oncologic care vs palliative radiation. family considering this Physical Exam Physical Exam: CONSTITUTIONAL: thin, frail, vitals as above, generally NAD EYES: normal conjunctivae, no scleral icterus ENT: external ear and nose normal, MMM NECK: trachea midline RESPIRATORY: clear to auscultation bilaterally, no crackles, rales or wheezes, normal respiratory effort CARDIOVASCULAR: regular rate and rhythm, S1 and 2 heard without murmurs, gallops or rubs, no JVD, no peripheral edema CHEST: inspection of chest was normal GASTROINTESTINAL: normal bowel sounds, soft, nontender, ND, no guarding MUSCULOSKELETAL: strength 5/5 throughout, head is normocephalic and atraumatic SKIN: warm and dry NEUROLOGIC: CN 2-12 grossly intact, no sensory deficit, normal cognition, normal speech, no tremor PSYCHIATRIC: alert cooperative and oriented to person, place and time. Euthymic mood, makes good eye contact, language grossly intact, recent and remote memory grossly intact. Results & Data Results & Data Vital Signs (Past 12 Hours) Vital Signs Temp Pulse Pulse Resp BP Pulse Ox O2 Del Method 07/13/23 19:46 38 C H 69 18 109/58 L 95 Room Air 07/13/23 16:00 61 07/13/23 15:20 37.4 C 60 16 114/73 94 Room Air 07/13/23 12:09 37.2 C 59 L 16 122/72 90 Room Air Laboratory Results [facility] 07/13/23 08:33 Sodium 140 Potassium 3.4 L Chloride 113 H Carbon Dioxide 25 BUN 11 Creatinine 0.64 Glucose 130 H Calcium 7.4 L Medications Administered Current Inpatient Medications Promethazine HCl 6.25 mg/ (Sodium Chloride) 50.25 mls @ 201 mls/hr IV Q6H PRN PRN Reason: Nausea And Vomiting Stop: 08/08/23 20:03 Dextrose/Sodium Chloride (D5w And Nss) 1,000 mls @ 80 mls/hr IV .[id number] MAYO Stop: 08/09/23 17:29 Last Admin: 07/13/23 06:15 Dose: 80 mls/hr Pantoprazole Sodium 40 mg/ (Syringe) 10 mls @ 5 mls/min IV BID MAYO Stop: 08/11/23 08:59 Last Admin: 07/13/23 20:54 Dose: 5 mls/min
[2023-07-14 06:18] LABS: BUN Creatinine Ratio 17.9 (10-20); Basophils # (auto) 0.04 K/uL (0.00-0.20); Basophils % (auto) 0.6 %; Calcium 7.8 mg/dl (8.6-10.3); Creatinine Clr Calc Pharmacy 73.2 ml/min; Eosinophils # (auto) 0.13 K/uL (0.00-0.50); Eosinophils % (auto) 1.9 %; Est GFR (African American) 101.5 ml/min; Est GFR (Non-African American) 87.6 ml/min; Hematocrit (blood only) 32.5 % (42.0-52.0); Hemoglobin 10.6 g/dl (14.0-18.0); Immature Granulocytes # (auto) 0.02 K/uL (0.01-0.20); Immature Granulocytes % (auto) 0.3 %; Lymphocytes # (auto) 1.46 K/uL (1.20-3.40); Lymphocytes % (auto) 21.5 %; Mean Corpuscular Hemoglobin 30.9 pg (25.0-34.0); Mean Corpuscular Hgb Conc 32.6 g/dL (32.0-36.0); Mean Corpuscular Volume 94.8 fL (80.0-100.0); Mean Platelet Volume 10.5 fL (9.4-12.4); Monocytes # (auto) 0.58 K/uL (0.11-0.59); Monocytes % (auto) 8.5 %; Neutrophils # (auto) 4.56 K/uL (1.40-6.50); Neutrophils % (auto) 67.2 %; Platelet Count 186 K/uL (130-400); Potassium 4.3 mmol/L (3.5-5.1); RDW Coefficient of Variation 12.8 % (11.5-14.5); RDW Standard Deviation 44.6 fL (36.4-46.3); Red Blood Count 3.43 M/uL (4.70-6.10); White Blood Count 6.79 K/ul (4.8-10.8)
--- NOTE | 2023-07-14 06:44 | XRay Report ---
XR chest 1V portable HISTORY: 83 years-old Male fever acute fever COMPARISON: 07/12/2023 TECHNIQUE: AP view of the chest FINDINGS: Cardiomediastinal and hilar silhouettes are within normal limits. Atherosclerosis of the aorta. No pn eumothorax, pleural effusion, airspace consolidation or pulmonary edema. Bones of the chest appear gr ossly intact. IMPRESSION: No acute process. ACT 112: Negative or not required by law. The above report was generated using voice recognition software. It may contain grammatical, syntax o r spelling errors. Electronically signed by: Deni Duran M.D. 07/14/2023 6:42 AM
--- NOTE | 2023-07-14 08:50 | Hospitalist Progress Note ---
Date of Service July 14, 2023 Assessment & Plan (1) Esophageal mass: (2) Dysphagia: (3) Weight loss: (4) Prediabetes: (5) Vitamin B12 deficiency (dietary) anemia: (6) NSVT (nonsustained ventricular tachycardia): Plan: Tele report of NSVT 18 beats on telemetry. Cont to replete lytes as needed. Patient and family are leaning toward hospice care and not in favor of extensive workups. DC telemetry at this time. Code status updated to DNR. Plan 83 y/o M with hx of Vit B12 def anemia, prediabetes, Trace mitral regurgitation, Mild aortic regurgitation, macular degenerationand s/pcataractsurgery adm itted with worsening dysphagia and weight loss. Esophageal mass, presumed malignant Dysphagia Weight Loss CT soft tissue neck- Notes severe dilatation of the upper esophagus suggestive of achalasia versus obstructive distal lesion of indeterminate etiology. CT chest noted the following: -Markedly dilated esophagus, which is filled with fluid/debris to the level of the thoracic inlet, concern for ability to aspirate -Concern for malignancy/an obstructing gastroesophageal mass lesion in the distal esophagus/gastric cardia -Bulky upper abdominal lymphadenopathy with calcifications concerning for metastatic disease -smaller but similar appearing calcified high left paratracheal node, as well as an enlarged right paraesophageal node -2 indeterminate pulmonary nodules which measure up to 3 mm. Attention of follow-up is recommended. -Cardiomegaly MRI Brain- grossly unremarkable. Notes a 1.5 cm left submandibular calcification, likely within the submandibular duct. Repeat CT chest and abd/pelvis with contrast done for staging-confirming esophageal malignancy GI consulted, appreciate recs. -EGD 07/11- results and recommendations noted. -Consider palliative care consult after further discussion with family/daughters -Pt previously NPO after a failed soft food/ice-cream trial, can eat ice chips -today progressing to full liquids/soft foods as tolerated. Noted that pt does chew tobacco daily I was later contacted by palliative provider that family do not wish to have radiation or chemotherapy considered. Code status updated to DNR. Delirium required restraints temporarily overnight CODE LIBIA called evening of 07/09, received a dose of Zyprexa 5mg IM resolved and he has reliably been off the one to one status. Diet: tolrating clears, advance to soft foods for comfort. DVT PPx: holding in setting of bleeding mass Code Status: DNR Dispo-home with hospice this weekend. DC telemetry. I spent a total [id number] coordinating, documenting, and providing care for this patient excluding time spent in the performance of separately billed services DO Joyce Beltran Hospitalist Admission and Anticipated Discharge Date Admission Date: July 08, 2023 Subjective 83 yo M with new esophageal mass, presumed to be malignant. pathology pending. Pt and three daughters were present in the room today family and patient leaning toward hospice Still awaiting input from palliative provider. Discussed options for possible oncologic care vs palliative radiation. family considering this Physical Exam Physical Exam: CONSTITUTIONAL: thin, frail, vitals as above, generally NAD EYES: normal conjunctivae, no scleral icterus ENT: external ear and nose normal, MMM NECK: trachea midline RESPIRATORY: clear to auscultation bilaterally, no crackles, rales or wheezes, normal respiratory effort CARDIOVASCULAR: regular rate and rhythm, S1 and 2 heard without murmurs, gallops or rubs, no JVD, no peripheral edema CHEST: inspection of chest was normal GASTROINTESTINAL: normal bowel sounds, soft, nontender, ND, no guarding MUSCULOSKELETAL: strength 5/5 throughout, head is normocephalic and atraumatic SKIN: warm and dry NEUROLOGIC: CN 2-12 grossly intact, no sensory deficit, normal cognition, normal speech, no tremor PSYCHIATRIC: alert cooperative and oriented to person, place and time. Euthymic mood, makes good eye contact, language grossly intact, recent and remote memory grossly intact. Results & Data Results & Data Vital Signs (Past 12 Hours) Vital Signs Temp Pulse Resp BP Pulse Ox O2 Del Method 07/14/23 08:24 36.7 C 57 L 16 117/70 95 Room Air 07/14/23 07:17 Room Air 07/13/23 23:10 36.7 C 61 20 105/66 95 Room Air Laboratory Results Short CBC 07/14/23 Range/Units 05:30 WBC 6.79 (4.8-10.8) K/ul Hgb 10.6 L (14.0-18.0) g/dl Hct 32.5 L (42.0-52.0) % Plt Count 186 (130-400) K/uL BMP 07/13/23 07/14/23 08:33 05:30 Sodium 140 139 Potassium 3.4 L 4.3 D Chloride 113 H 112 H Carbon Dioxide 25 26 BUN 11 12 Creatinine 0.64 0.67 Glucose 130 H 94 Calcium 7.4 L 7.8 L Diagnostic Findings Chest X-Ray 07/13/23 20:02 XR chest 1V portable HISTORY: 83 years-old Male fever acute fever COMPARISON: 07/12/2023 TECHNIQUE: AP view of the chest FINDINGS: Cardiomediastinal and hilar silhouettes are within normal limits. Atherosclerosis of the aorta. No pneumothorax, pleural effusion, airspace consolidation or pulmonary edema. Bones of the chest appear grossly intact. IMPRESSION: No acute process. ACT 112: Negative or not required by law. The above report was generated using voice recognition software. It may contain grammatical, syntax or spelling errors. Electronically signed by: Deni Duran M.D. 07/14/2023 6:42 AM Medications Administered Current Inpatient Medications Promethazine HCl 6.25 mg/ (Sodium Chloride) 50.25 mls @ 201 mls/hr IV Q6H PRN PRN Reason: Nausea And Vomiting Stop: 08/08/23 20:03 Pantoprazole Sodium 40 mg/ (Syringe) 10 mls @ 5 mls/min IV BID MAYO Stop: 08/11/23 08:59 Last Admin: 07/13/23 20:54 Dose: 5 mls/min
[2023-07-14] MEDS: PANTOprazole 40 MG in SYRINGE 0 ML IV SCH (08:55)
--- NOTE | 2023-07-14 14:55 | Discharge Summary ---
Discharge Summary Date of Service July 14, 2023 Admission HPI Per Admitting Provider Pt is a 83 y/o M with hx of Vit B12 def anemia, prediabetes, Trace mitral regurgitation, Mild aortic regurgitation, macular degenerationand s/pcataractsurgery came into the ER with worsening dysphagia and weight loss. Per daughter who was at bedside. Pt has been experiencing dysphagia for 2 months. Initially it was associated with solid, dry food and now pt is having dysphagia with water. He also lost abt ~20 lbs in last 2 months. Pt denied any fever, abd pain, lymphadenopathy, urinary symptoms, night sweats. Per daughter pt is still able to do things in the house. 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: (2) Malnutrition: (3) Dysphagia: (4) NSVT (nonsustained ventricular tachycardia): Updated Medication List Medication Instructions Recorded Confirmed Type cyanocobalamin (vitamin B-12) 1,000 mcg PO QAM 07/08/23 07/08/23 History 1,000 mcg sublingual tablet morphine concentrate 100 mg/5 mL 10 mg (0.5 mL) PO Q6H PRN severe 07/14/23 Rx (20 mg/mL) oral solution pain (scale score 7-10) #30 mL omeprazole 20 mg capsule,delayed 20 mg PO DAILY #30 caps 07/14/23 Rx release ondansetron 4 mg disintegrating 4 mg PO DAILY PRN nausea and 07/14/23 Rx tablet vomiting #20 tabs Hospital Stay Data Consultations 07/08/23 17:26 ED Decision to Admit Stat 07/08/23 18:47 Consult Gastroenterology Routine 07/12/23 08:22 Consult Palliative Care Routine Procedures Performed Operation Date: 07/11/23 15:50 Actual Procedures p Esophagogastroduodenoscopy, with Biopsy.(Not Applicable) - Henry Murillo MD Diagnostic Imagining Performed 07/08/23 19:56 CT soft tissue neck w con Urgent 07/09/23 09:09 CT chest diagnostic wo con Urgent 07/10/23 11:12 MRI Brain [MR brain wo/w con] Urgent 07/10/23 12:43 CT abdomen pelvis wo/w con Routine CT chest diagnostic w con Routine 07/11/23 12:11 US upper EUS PACS images Routine Pending Results Patient Have Any Pending Studies at Discharge: No Discharge Instructions Given to Patient (Per Discharging Provider) Please take all medications as instructed on discharge list below. It is recommended that you consider a follow-up in 1 week with your primary care physician to assist with any refills of medications and ensure that you are still doing well after transitioning home. You are being given antinausea and pain medicines to take in the event you have nausea or pain respectively. Please do not take these consistently only if you experience the symptoms. 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 Please follow-up with Dr. Murillo from [facility] gastroenterology with any questions. You may also want to consider a consultation with an oncologist to discuss treatment options or even a radiation oncologist to discuss palliative treatment options such as radiation to this mass in your esophagus. As discussed your difficulty swallowing may increase as this mass increases in size. If you feel increased discomfort, move your diet to clear liquids for some time before trying regular food again. It was a pleasure taking care of you! Please call if you have any questions or problems. You can reach a [facility] hospitalist on duty at [facility] 24 hours a day by calling [phone]. Take care of yourself. Ambreen Mckeon, DO [facility] Hospitalist
== END 2023-07-14 15:19 | disposition hospice, home (50) | DRG 374 ==
LOC: ED 14:45 → 3N 17:34 → SUATTDRO 17:34 → 3N 18:21 → 2W 07-09 22:40